=== PATIENT | male | born 1945 | race Caucasian/White ===

== ENCOUNTER → 2019-12-28 13:26 | Outpatient (BNVA) | payer MEDICARE, MEDICAID, SELFPAY | PROVIDERS: PCP Internal Medicine; Referring Provider Internal Medicine; Visit Provider Hospitalist | DX: G47.33 Obstructive sleep apnea (adult) (pediatric) (principal); G20 Parkinson's disease; Z99.89 Dependence on other enabling machines and devices | CPT/HCPCS: 99213 ==

== ENCOUNTER 2020-04-19 13:59 | Outpatient (REF) | payer MEDICARE, MEDICAID, SELFPAY ==
--- NOTE | 2020-04-20 16:30 | MHC.AU.P13 ---
Adult Audiological Evaluation Date of Visit: 04/19/20 Reason for Appointment: Audiological evaluation to monitor the status of Mr. Candelaria's hearing loss. He reports that his hearing seems to be gradually decreasing. He denies any significant changes to his medical history. Previous Hearing Test Results: [facility] [place], 04/20/2019- Mild sloping to profound sensorineural hearing loss bilaterally. Medical History: Medical History: Diabetes, High Blood Pressure Medical History: high cholesterol, Parkinson's, depression Hearing Instrument History- Right Ear: Block Mason: Oticon Model: Opn 3 PP BTE (105) Serial Number: [id number] Battery Size: 13 Repair Warranty: 05/08/2020 Loss and Damage Warranty: January 2019 [facility] [place] Date of Fittin12/25/2016 (purchase date per [employer]) Hearing Instrument History- Left Ear: Block Mason: Oticon Model: Opn 3 PP BTE (105) Serial Number: [id number] Battery Size: 13 Warranty: 05/08/2020 Loss and Damage Warranty: January 2019 Dispensed By: [employer] [place] Date of Fittin12/25/2016 (purchase date per [employer]) Otoscopy: Right Ear: Unremarkable Left Ear: Unremarkable Tympanometry: Right Ear: Not performed at today's visit Left Ear: Not performed at today's visit Hearing Evaluation: Transducer(s) Used: Insert Earphones, Bone Conduction Method: Conventional Audiometry Stimuli Used: Pure Tones Right Ear: Description of Hearing: Mild sloping to profound sensorineural hearing loss from 250-8000 Hz. Thresholds are 10 dB worse than the left ear at 500-1500, 3000, and 6000 Hz. Left Ear: Description of Hearing: Mild sloping to profound sensorineural hearing loss from 250-8000 Hz. Speech Recognition Threshold (SRT): Method Used: Monitored Live Voice Stimuli Used: Spondee Words Right Ear: 50 dBHL Left Ear: 45 dBHL Word Discrimination: Method: Recorded Lists Word Lists Used: NU-6 Right Ear: 72% at 85 dBHL Left Ear: 88% at 85 dBHL Comparison: Compared to the most recent evaluation: Hearing is stable. Recommendations: Audiological re-evaluation in one year. Hearing aid maintenance performed today. See Hearing Aid Follow-Up note for more information. Hearing aid maintenance recommended in 6 months. Diagnosis: Primary Diagnosis: H90.3 Bilateral Sensorineural Hearing Loss Services Performed: Comprehensive Audiological Evaluation (CPT 72997) Signature: Provider: Jeff Garduno, CCC-A
== END 2020-04-19 14:00 | disposition home or self-care (01) ==
LOC: HO.SH 13:59
PROVIDERS: Visit Provider Internal Medicine
DX: Z46.1 Encounter for fitting and adjustment of hearing aid (principal); H90.3 Sensorineural hearing loss, bilateral
CPT/HCPCS: 92557; 92593; 99499

== ENCOUNTER 2020-09-13 13:03 | Outpatient (REF) | payer MEDICARE, MEDICAID, SELFPAY | END 2020-09-13 13:04 | disposition home or self-care (01) | LOC: HO.HAP 13:03 | PROVIDERS: Visit Provider Internal Medicine | DX: Z46.1 Encounter for fitting and adjustment of hearing aid (principal); H90.6 Mixed conductive and sensorineural hearing loss, bilateral; H90.3 Sensorineural hearing loss, bilateral | CPT/HCPCS: 92593 ==

== ENCOUNTER 2020-10-13 08:16 | Outpatient (REF) | payer MEDICARE, MEDICAID, SELFPAY | END 2020-10-13 08:17 | disposition home or self-care (01) | LOC: HO.HAP 08:16 | PROVIDERS: Visit Provider Internal Medicine | DX: Z46.1 Encounter for fitting and adjustment of hearing aid (principal); H90.3 Sensorineural hearing loss, bilateral | CPT/HCPCS: 92593; V5266 ==

== ENCOUNTER 2020-11-04 12:00 | Outpatient (REF) | payer MEDICARE, MEDICAID, SELFPAY | END 2020-11-04 12:01 | disposition home or self-care (01) | LOC: HO.HAP 12:00 | PROVIDERS: Visit Provider Internal Medicine | DX: Z46.1 Encounter for fitting and adjustment of hearing aid (principal); H90.3 Sensorineural hearing loss, bilateral | CPT/HCPCS: V5014 ==

== ENCOUNTER → 2020-11-22 13:01 | Outpatient (BNVA) | payer MEDICARE, MEDICAID, SELFPAY | PROVIDERS: PCP Internal Medicine; Visit Provider Urology | DX: N40.1 Benign prostatic hyperplasia with lower urinary tract symptoms (principal); N28.1 Cyst of kidney, acquired | CPT/HCPCS: 51798; 99212 ==

== ENCOUNTER → 2020-11-25 08:55 | Outpatient (BNVA) | payer MEDICARE, MEDICAID, SELFPAY | PROVIDERS: PCP Internal Medicine; Visit Provider Hospitalist | DX: G47.33 Obstructive sleep apnea (adult) (pediatric) (principal); G47.00 Insomnia, unspecified; Z99.89 Dependence on other enabling machines and devices | CPT/HCPCS: 99212 ==

== ENCOUNTER 2020-12-01 08:54 | Outpatient (REF) | payer MEDICARE, MEDICAID, SELFPAY ==
[2020-12-01 10:22] LABS: Blood Urea Nitrogen 26 mg/dL (9-16); Estimated Glomerular Filt Rate > 60
== END 2020-12-01 08:55 | disposition home or self-care (01) ==
LOC: HO.LAB 08:54
PROVIDERS: PCP Internal Medicine; Visit Provider Urology
DX: N28.1 Cyst of kidney, acquired (principal); R39.15 Urgency of urination
CPT/HCPCS: 36415; 82565; 84520

== ENCOUNTER 2020-12-08 10:10 | Outpatient (REF) | payer MEDICARE, MEDICAID, SELFPAY ==
--- NOTE | ~2020-12-08 | CT_ITS ---
EXAMINATION: CT ABDOMEN WITHOUT AND WITH CONTRAST CLINICAL INFORMATION: Evaluate complex cyst of left kidney. COMPARISON: Prior renal ultrasound exams, including 04/23/2019. TECHNIQUE: Contiguous axial thin section helical images of the abdomen were performed before and after the administration of 85 mL of Omnipaque [address] examination was performed using dose optimization techniques as appropriate, variously including the following: *Automated exposure control *Adjustment of mA and/or kV according to patient size (this includes techniques or standardized protocols for targeted exams where dose is matched to indication/reason for exam; i.e. extremities or head) *Use of iterative reconstruction technique DLP: 837 mGy-cm FINDINGS: LUNG BASES: There is coronary artery atherosclerotic calcification. No pulmonary consolidation or pleural effusion at either lung base. LIVER: Mild hepatomegaly. Liver has parenchymal attenuation of approximately 35-48 HU on noncontrast images, consistent with mild steatosis. A few calcified granulomas are observed within the liver. GALLBLADDER AND BILIARY TREE: Gallbladder is without radiopaque stones, wall thickening or pericholecystic fluid. No bile duct dilatation. PANCREAS: Normal. No edema, pancreatic ductal dilatation or mass. SPLEEN: Mildly enlarged spleen measures up to 13.8 cm maximum dimension. ADRENAL GLANDS: Normal. KIDNEYS AND URETERS: Kidneys are normal in size. 0.8 x 0.3 x 0.4 cm calyceal stone in the right lower pole has a density of 700 Hounsfield units and is located 12.8 cm deep from the skin surface at the posterior axillary line. No hydronephrosis. No perinephric fluid collection. Bosniak category 1 and category 2 renal cysts are observed. The cysts of the right kidney have a simple appearance, largest measuring up to 2.1 cm. The left renal cyst described as complex on 04/23/2019 has a simple appearance on this CT exam. It currently measures up to 2.6 cm and has water attenuation on pre and postcontrast images. No solid, contrast-enhancing soft tissue elements or thick septations. The largest cyst of the left kidney is a simple parapelvic cyst in the mid to lower pole that measures up to 5.6 cm maximum dimension. A cyst of the posterior left lower pole is a Bosniak category 2 cyst. It has minimal calcification of its posterior wall, and there is a 1.2 cm component that has the appearance of a proteinaceous cyst, density of 28 Hounsfield units on pre- and postcontrast images. BOWEL AND PERITONEUM: No dilated bowel loops. No ascites or mesenteric fat stranding. ABDOMINAL WALL: Unremarkable. VASCULATURE: Atherosclerosis of the abdominal aorta without aneurysm. Inferior vena cava and renal veins are normal. LYMPH NODES: No pathologic sized lymph nodes. SKELETAL: Degenerative disc disease of T12-L1 as manifest by loss of disc height, vacuum disc phenomenon, endplate sclerosis and osteophytosis. No suspicious lesions in the degenerated spine. A few old healed right rib fractures are noted. CT/CT abdomen wo/w con IMPRESSION: * Mild hepatic steatosis and hepatosplenomegaly. * The cyst described as complex on 04/23/2019 is a simple, Bosniak category [address] imaging examination. There are no suspicious renal lesions. No renal imaging follow-up is recommended. * Nonobstructing stone in the lower pole of the right kidney.
[2020-12-08] MEDS: iohexoL 350 MG/ML 100 ML INFUS..BTL IV (11:36)
== END 2020-12-08 10:11 | disposition home or self-care (01) ==
LOC: HO.CT 10:10
PROVIDERS: Visit Provider Urology
DX: N28.1 Cyst of kidney, acquired (principal)
CPT/HCPCS: 74170; Q9967

== ENCOUNTER → 2021-01-10 11:22 | Outpatient (BNVA) | payer MEDICARE, MEDICAID, SELFPAY | PROVIDERS: PCP Internal Medicine; Visit Provider Urology | DX: N40.1 Benign prostatic hyperplasia with lower urinary tract symptoms (principal); N28.1 Cyst of kidney, acquired; N20.0 Calculus of kidney | CPT/HCPCS: 99212 ==

== ENCOUNTER 2021-07-03 14:04 | Outpatient (REF) | payer MEDICARE, MEDICAID, SELFPAY ==
--- NOTE | 2021-07-03 16:07 | MHC.AU.AHA ---
Adult Audiological Evaluation Date of Visit: 07/03/21 Reason for Appointment: Audiological re-evaluation to monitor the status of Juve's hearing. He has a known bilateral, sensorineural hearing loss and uses hearing aids binaurally. He notes that he hasn't been hearing as well with the hearing aids lately and feels his hearing is getting worse. He notes that he has to turn the TV up louder and has been asking for more repetition. He denies any significant changes to his medical history. Previous Hearing Test Results: [facility] [place], 04/19/2020- Mild sloping to profound sensorineural hearing loss bilaterally. Medical History: Medical History: Diabetes, High Blood Pressure, high cholesterol, Parkinson's, depression Medication List: Not provided Hearing Instrument History- Right Ear: Stave Cutting Supervisor: Oticon Model: Opn 3 PP BTE Serial Number: [id number] Battery Size: 13 Repair Warranty: 11/04/2021 Loss and Damage Warranty: Dispensed By: [facility] Date of Fittin Hearing Instrument History- Left Ear: Stave Cutting Supervisor: Oticon Model: Opn 3 PP BTE Serial Number: [id number] Battery Size: 13 Warranty: 11/04/2021 Loss and Damage Warranty: Dispensed By: [facility] Date of Fittin Otoscopy: Right Ear: Unremarkable Left Ear: Unremarkable Tympanometry: Tympanometry performed due to: To assess integrity of the middle ear system Right Ear: Normal Middle Ear System (Type A) Left Ear: Reduced Middle Ear Compliance (Type As) Hearing Evaluation: Transducer(s) Used: Insert Earphones, Bone Conduction Method: Conventional Audiometry Stimuli Used: Pure Tones Right Ear: Description of Hearing: Moderate sloping to profound sensorineural hearing loss from 250-8000 Hz. Left Ear: Description of Hearing: Mild sloping to profound sensorineural hearing loss from 250-8000 Hz. Speech Recognition Threshold (SRT): Method Used: Monitored Live Voice Stimuli Used: Spondee Words Right Ear: 50 dBHL Left Ear: 50 dBHL Word Discrimination: Method: Recorded Lists Word Lists Used: NU-6 Right Ear: 68% at 90 dBHL Left Ear: 84% at 90 dBHL Comparison: Compared to most recent evaluation: Slight decrease in pure tone thresholds bilaterally. Recommendations: Audiological re-evaluation in one year. Hearing aid maintenance performed today. Hearing aid(s) reprogrammed with updated test results. Hearing aids are amplifying clearly post-cleaning and adjustments. Juve is due for updated amplification in January 2022. Diagnosis: Primary Diagnosis: H90.3 Bilateral Sensorineural Hearing Loss Services Performed: Comprehensive Audiological Evaluation (CPT 97464) Tympanometry (CPT 58516) Signature: Provider: Jeff Garduno, CCC-A
== END 2021-07-03 14:05 | disposition home or self-care (01) ==
LOC: HO.SH 14:04
PROVIDERS: Visit Provider Internal Medicine
DX: Z01.118 Encounter for examination of ears and hearing with other abnormal findings (principal); Z46.1 Encounter for fitting and adjustment of hearing aid; H90.3 Sensorineural hearing loss, bilateral
CPT/HCPCS: 92557; 92567; 92593; V5266

== ENCOUNTER → 2021-07-20 13:19 | Outpatient (BNVA) | payer MEDICARE, MEDICAID, SELFPAY | PROVIDERS: PCP Internal Medicine; Visit Provider Hospitalist | DX: G47.33 Obstructive sleep apnea (adult) (pediatric) (principal); G47.00 Insomnia, unspecified; Z99.89 Dependence on other enabling machines and devices | CPT/HCPCS: 99212 ==

== ENCOUNTER → 2021-07-21 10:43 | Outpatient (BNVA) | payer MEDICARE, MEDICAID, SELFPAY | PROVIDERS: PCP Internal Medicine; Visit Provider Urology | DX: N20.0 Calculus of kidney (principal); N28.1 Cyst of kidney, acquired; N40.0 Benign prostatic hyperplasia without lower urinary tract symptoms | CPT/HCPCS: 99212 ==

== ENCOUNTER 2021-08-22 12:22 | Outpatient (REF) | payer MEDICARE, MEDICAID, SELFPAY ==
--- NOTE | 2021-08-22 13:08 | MHC.AU.HFU ---
Hearing Instrument Follow-Up- Binaural Date of Visit: 08/22/21 Right Ear: Flex O Writer Operator: Oticon Model: Opn 3 PP BTE Serial Number: [id number] Repair Warranty: 11/04/2021 Loss and Damage Warranty: Battery Size: 13 Color: Silver Tubing: Changed to Dri-Tube 08/22/2021 Type of Mold: Acrylic Canal lock mold Dispensed By: [facility] Date of Fittin Left Ear: Flex O Writer Operator: Oticon Model: Opn 3 PP BTE Serial Number: [id number] Repair Warranty: 11/04/2021 Loss and Damage Warranty: Battery Size: 13 Color: Silver Tubing: Changed to Dri-Tube 08/22/2021 Type of Mold: Acrylic Canal lock mold Dispensed By: [facility] Date of Fittin Follow-Up Summary: Patient reports short battery life, in particular for the left hearing aid with the battery only lasting one day. Visual inspection showed some moisture in both tubes and debris in the microphones. Also checked the batteries with both having adhesive residue from the tab, left greater than right. Cleaned aids, microphones, contacts, changed to dri-tube for both aids. Explained the 3 potential factors I found which could reduce battery life. Otoscopy showed only a small amount of non-occluding cerumen in both canals. Recommendations: If problem continues, will need to send aid(s) out for repair as patient is not eligible for new aids until 01/2022. Diagnosis Code(s):Primary Diagnosis: H90.3 Bilateral Sensorineural Hearing Loss Services Performed:KATE Non-Quantity Charges: HACHECKB (MH>1 yr or new to us) Face to face appointment Signature: Provider: eJff Ojeda, CCC-A
== END 2021-08-22 12:23 | disposition home or self-care (01) ==
LOC: HO.HAP 12:22
PROVIDERS: Visit Provider Internal Medicine
DX: Z46.1 Encounter for fitting and adjustment of hearing aid (principal); H90.3 Sensorineural hearing loss, bilateral
CPT/HCPCS: 92593

== ENCOUNTER 2021-08-24 14:24 | Outpatient (REF) | payer MEDICARE, MEDICAID, SELFPAY | END 2021-08-24 14:25 | disposition home or self-care (01) | LOC: HO.HAP 14:24 | PROVIDERS: Visit Provider Internal Medicine | DX: Z46.1 Encounter for fitting and adjustment of hearing aid (principal); H90.3 Sensorineural hearing loss, bilateral | CPT/HCPCS: 92592 ==

== ENCOUNTER 2021-10-23 11:03 | Outpatient (REF) | payer MEDICARE, MEDICAID, SELFPAY | END 2021-10-23 11:04 | disposition home or self-care (01) | LOC: HO.HAP 11:03 | PROVIDERS: Visit Provider Internal Medicine | DX: Z46.1 Encounter for fitting and adjustment of hearing aid (principal); H90.3 Sensorineural hearing loss, bilateral | CPT/HCPCS: V5266 ==

== ENCOUNTER 2021-11-15 09:51 | Outpatient (REF) | payer MEDICARE, MEDICAID, SELFPAY ==
--- NOTE | 2021-11-15 15:27 | MHC.AU.HFU ---
Hearing Instrument Follow-Up- Binaural Date of Visit: 11/15/21 Right Ear: Commercial Hvac Technician: Oticon Model: Opn 3 PP BTE Serial Number: [id number] Repair Warranty: 11/04/2021 Battery Size: 13 Tubing: Changed to Dri-Tube 08/22/2021 Dispensed By: [facility] Date of Fittin Left Ear: Commercial Hvac Technician: Oticon Model: Opn 3 PP BTE Serial Number: [id number] Repair Warranty: 11/04/2021 Battery Size: 13 Tubing: Changed to Dri-Tube 08/22/2021 Dispensed By: [facility] Date of Fittin Follow-Up Summary: Patient reports his batteries are still only lasting 1-3 days. He reports they have been sent out for repair for this issue in the past and it has not improved. His has also noticed that he doesn't seem to be hearing well from them and is placing the television at uncomfortably loud volumes. At last visit on 08/22/21, adhesive residue was discovered on the batteries. Today, adhesive residue was also discovered on the batteries. In addition, the adhesive residue was also found on the simmons of the battery compartment. The residue was cleaned out of the battery compartment. Hearing aids were placed in the electric dehumidifier for several minutes. Debris removed from microphones. Hearing aids are amplifying clearly after maintenance. Discussed findings about the adhesive. Patient reports he has been wiping the batteries with a paper towel. It has not been removing all of the adhesive. Suggested using an alcohol pad or trying a different brand of batteries. Patient is eligible for new hearing aids in January 2022 and is interested in rechargeables to avoid this issue in the future. In Genie 2, overall gain was raised by 2 steps. High frequency gain was lowered than expected. Raised high frequency gain an additional 4 steps. Patient was pleased with the changes, reporting it was comfortable and that he could hear me better. Recommendations: Patient will request an updated order from his PCP for an audio eval, as his last one was in June 2021 and he will need a test within the last 6 months for his insurance to cover new hearing aids in January. We will aim for late December/early January for an audiological re-evaluation. Diagnosis Code(s): Primary Diagnosis: H90.3 Bilateral Sensorineural Hearing Loss Signature: Provider: Jeff Campo, CCC-A
== END 2021-11-15 09:52 | disposition home or self-care (01) ==
LOC: HO.HAP 09:51
PROVIDERS: Visit Provider Internal Medicine
DX: Z46.1 Encounter for fitting and adjustment of hearing aid (principal); H90.3 Sensorineural hearing loss, bilateral
CPT/HCPCS: 92593

== ENCOUNTER 2021-11-20 13:33 | Outpatient (REF) | payer MEDICARE, MEDICAID, SELFPAY | END 2021-11-20 13:34 | disposition home or self-care (01) | LOC: HO.HAP 13:33 | PROVIDERS: Visit Provider Internal Medicine | DX: Z13.89 Encounter for screening for other disorder (principal) ==

== ENCOUNTER 2021-11-22 14:15 | Outpatient (REF) | payer MEDICARE, MEDICAID, SELFPAY | END 2021-11-22 14:16 | disposition home or self-care (01) | LOC: HO.SH 14:15 | PROVIDERS: Visit Provider Internal Medicine | DX: Z13.89 Encounter for screening for other disorder (principal) ==

== ENCOUNTER 2022-01-15 10:21 | Outpatient (REF) | payer MEDICARE, MEDICAID, SELFPAY ==
--- NOTE | ~2022-01-15 | US_ITS ---
EXAMINATION: US RETROPERITONEAL LIMITED (RENAL ONLY) CLINICAL INFORMATION: Cyst of kidney, acquired. COMPARISON: CT abdomen without and with contrast 12/08/2020 TECHNIQUE: Real-time imaging of the kidneys. FINDINGS: RIGHT KIDNEY: 15.0 x 7.1 x 7.2 cm (SAG x AP x TRV). The kidney is normal in size, contour, and echogenicity. Renal cortical thickness is normal. No hydronephrosis. 1 cm echogenic shadowing lower pole calculus. Numerous right renal cysts are seen the largest measuring 2.7 cm in the right mid kidney. A few of the cysts have a single thin septation. LEFT KIDNEY: 16.7 x 7.2 x 8.4 cm (SAG x AP x TRV). The kidney is normal in size, contour, and echogenicity. Renal cortical thickness is normal. No renal calculi or hydronephrosis. Numerous left renal cysts are present. The largest measures 6.2 x 3.7 x 4.4 cm. Several have septations. US/US renal BI IMPRESSION: Multiple bilateral renal cysts are present. Several cysts bilaterally have thin septations. None have suspicious or concerning features such as thick septations or mural nodules. No imaging follow-up is recommended based on the renal protocol CT scan 12/08/2020. If follow-up is warranted clinically, ultrasound is a limited modality for following these findings. Individual cysts cannot be reliably compared across studies by ultrasound. Moreover, ultrasound has limited utility in identifying soft tissue components. If further follow-up is clinically warranted recommend renal protocol CT or preferably MRI.
== END 2022-01-15 10:22 | disposition home or self-care (01) ==
LOC: HO.US 10:21
PROVIDERS: Visit Provider Urology
DX: N28.1 Cyst of kidney, acquired (principal)
CPT/HCPCS: 76775

== ENCOUNTER 2022-01-19 15:30 | Outpatient (REF) | payer MEDICARE, MEDICAID, SELFPAY ==
--- NOTE | 2022-01-19 16:45 | MHC.AU.MED ---
Medical Clearance for Hearing Instrumentation Date: 01/19/22 Patient Name: Juve To III Date of : 1945 Primary Care Provider: Felicity Ga MD We have seen your patient on 01/19/22 and have determined that they are a candidate for amplification (See accompanying report). Specifically, they would benefit from: Hearing aid use in both ears There is a statute that addresses Medical Evaluation Requirements prior to fitting a patient with a hearing aid. According to [place] statute 265 CMR:6.03(1), (a) General. Except as provided in 265 CMR 6.03(1)(b), a photographic spotter shall not sell a hearing aid unless the prospective user has presented to the photographic spotter a written statement signed by a licensed physician that states that the patient's hearing loss has been medically evaluated and the patient may be considered a candidate for a hearing aid. The medical evaluation must have taken place within the preceding six months. Please note: Due to the [place] Statute referenced above, we cannot accept a signature other than that of a licensed physician. CABINET WORKER and PA signatures cannot be accepted. I am in agreement with the above recommendation. There is no medical contraindication for hearing instrumentation. Physician Signature Date Physician Name (Printed)
--- NOTE | 2022-01-22 11:54 | MHC.AU.HFU ---
Hearing Instrument Follow-Up- Binaural Date of Visit: 01/19/22 Right Ear: Oticon OPN 3 PP BTE SN: [id number] Color: Silver Repair Warranty: 11/04/2021 Loss and Damage Warranty: Battery Size: 13 Type of Mold: Acrylic Canal lock mold Dispensed By: [facility] Date of Fittin Left Ear: Oticon OPN 3 PP BTE SN: [id number] Color: Silver Repair Warranty: 11/04/2021 Loss and Damage Warranty: Battery Size: 13 Type of Mold: Acrylic Canal lock mold Dispensed By: [facility] Date of Fittin Follow-Up Summary: Juve returned for routine hearing aid maintenance. His hearing aids and ear molds were cleaned and microphones were vacuumed. The tubing was replaced. A listening check demonstrated that the hearing aids are in good working order. Recommendations: Hearing instrument maintenance in 6 months, or sooner if needed. Please contact our clinic with any questions or concerns. Diagnosis Code(s): Primary Diagnosis: H90.3 Bilateral Sensorineural Hearing Loss Signature: Provider: Christiano Levy, [facility]
--- NOTE | 2022-01-22 12:20 | MHC.AU.HAS ---
Hearing Aid Evaluation Date of Visit: 01/19/22 Historical Information: Description of Hearing: Mild sloping to profound sensorineural hearing loss, bilaterally Current personal amplification information: Oticon OPN 3 PP BTE fit in January 2017 Hearing Aid Prescription: Based on the individual?s shared listening needs, communication environments, dexterity, desire for connectivity, and personal preferences, the following prescription for amplification has been made: Right ear: Business Ethics Professor: Phonak Model: Susan P70-TX Battery Size: Rechargeable Color: Velvet Black Type of Mold: Microsonic M35 canal shell mold Left ear: Left ear prescription to be same as Right Hearing Aid above: Business Ethics Professor: Phonak Model: Susan P70-TX Battery Size: Rechargeable Color: Velvet Black Type of Mold: Microsonic M35 canal shell mold Accessories/Assistive Technology Recommended: Publication Editor with power supply and wall adapter Plan of Care: Patient wishes to purchase hearing aids as prescribed Action Taken/Action Needed: Earmold Impressions Taken Medical Clearance to be requested from PCP/ENT Hearing Instrument Fitting to be scheduled when materials arrive Primary Diagnosis: H90.3 Bilateral Sensorineural Hearing Loss Signature: Provider: Christiano Levy, CCC-A
== END 2022-01-19 15:31 | disposition home or self-care (01) ==
LOC: HO.HAP 15:30
PROVIDERS: Visit Provider Internal Medicine
DX: Z46.1 Encounter for fitting and adjustment of hearing aid (principal); H90.3 Sensorineural hearing loss, bilateral
CPT/HCPCS: 92552; 92556; 92591; 92593

== ENCOUNTER → 2022-01-25 10:46 | Outpatient (BNVA) | payer MEDICARE, MEDICAID, SELFPAY | PROVIDERS: PCP Internal Medicine; Visit Provider Urology | DX: N40.1 Benign prostatic hyperplasia with lower urinary tract symptoms (principal); R35.1 Nocturia; R39.12 Poor urinary stream; N20.0 Calculus of kidney; N28.1 Cyst of kidney, acquired | CPT/HCPCS: 99212 ==

== ENCOUNTER → 2022-03-28 10:49 | Outpatient (BNVA) | payer MEDICARE, MEDICAID, SELFPAY | PROVIDERS: PCP Internal Medicine; Visit Provider Urology | DX: N20.0 Calculus of kidney (principal); N28.1 Cyst of kidney, acquired; N40.0 Benign prostatic hyperplasia without lower urinary tract symptoms; G20 Parkinson's disease; E11.9 Type 2 diabetes mellitus without complications | CPT/HCPCS: 51798; 99212 ==

== ENCOUNTER 2022-03-28 11:51 | Outpatient (REF) | payer MEDICARE, MEDICAID, SELFPAY | END 2022-03-28 11:52 | disposition home or self-care (01) | LOC: HO.HAP 11:51 | PROVIDERS: Visit Provider Internal Medicine | DX: Z46.1 Encounter for fitting and adjustment of hearing aid (principal); H90.3 Sensorineural hearing loss, bilateral | CPT/HCPCS: V5266 ==

== ENCOUNTER 2022-04-25 14:30 | Outpatient (REF) | payer MEDICARE, MEDICAID, SELFPAY ==
--- NOTE | 2022-04-25 16:20 | MHC.AU.HA2 ---
Hearing Instrument Fitting- Adult- Binaural Date of Visit: 04/25/22 Hearing Instruments Dispensed: Right Ear: Make, Model, Color, Serial Number: Emery Davis P70-R SN: [id number] Color: Velvet black Security Systems Installer Repair Warranty: 06/25/2025 Security Systems Installer Loss and Damage Warranty: 06/25/2025 [facility] Service Plan: 04/25/2023 Battery Size: Rechargeable Earmold/Dome/CShell/SlimTip: Microsonic M35 canal shell Left Ear: Make, Model, Color, Serial Number: Emery Davis P70-R SN: [id number] Color: Velvet black Security Systems Installer Repair Warranty: 06/25/2025 Security Systems Installer Loss and Damage Warranty: 06/25/2025 [facility] Service Plan: 04/25/2022 Battery Size: Rechargeable Earmold/Dome/CShell/SlimTip: Microsonic M35 canal shell Accessories/Assistive Technology: Phonak Mineral Surveyor Combi BTE incl. US EPS Summary of Fitting: Performed feedback bid manager and real ear measurements. Comfortable at real ear settings. Reviewed care, use, and rechargeability including manually turning on/off and volume control use. Juve is happy to have rechargeable hearing aids so he does not have to worry about batteries anymore. Paired to cell phone. Explained [employer] yessica - Juve will download it at home if he wants to try it. Otherwise, Juve reported good, initial sound quality in terms of both volume and clarity. Recommendations: A hearing instrument follow-up was scheduled. Diagnosis Code(s): Primary Diagnosis: H90.3 Bilateral Sensorineural Hearing Loss Signature: Provider: Christiano Levy, [facility]
== END 2022-04-25 14:31 | disposition home or self-care (01) ==
LOC: HO.HAP 14:30
PROVIDERS: Visit Provider Internal Medicine
DX: Z46.1 Encounter for fitting and adjustment of hearing aid (principal); H90.3 Sensorineural hearing loss, bilateral
CPT/HCPCS: V5011; V5020; V5160; V5261; V5264

== ENCOUNTER 2022-04-30 13:13 | Outpatient (REF) | payer MEDICARE, MEDICAID, SELFPAY ==
--- NOTE | 2022-04-30 16:28 | MHC.AU.HA3 ---
Hearing Instrument Follow-Up- Binaural Date of Visit: 04/30/22 Right Ear: Luis, Model, Color, Serial Number: Emery Davis P70-R SN: [id number] Color: Velvet black Eating Disorder Specialist Repair Warranty: 06/25/2025 Eating Disorder Specialist Loss and Damage Warranty: 06/25/2025 [facility] Service Plan: 04/25/2023 Battery Size: Rechargeable Earmold/Dome/CShell/SlimTip:Microsonic M35 canal shell Dispensed By: [facility] Date of Fittin04/25/2022 Left Ear: Luis, Model, Color, Serial Number: Emery Davis P70-R SN: [id number] Color: Velvet black Eating Disorder Specialist Repair Warranty: 06/25/2025 Eating Disorder Specialist Loss and Damage Warranty: 06/25/2025 [facility] Service Plan: 04/25/2023 Battery Size: Rechargeable Earmold/Dome/CShell/SlimTip: Microsonic M35 canal shell Dispensed By: [facility] Date of Fittin04/25/2022 Follow-Up Summary: Juve reported that the day after his fitting, his hearing aids stopped working. He reportedly placed them in the bat person overnight and the next morning they were . Upon inspection, the hearing aids were and would not charge. After trying multiple configurations of Juve's personal equipment with stock equipment, deduced that the charging cable and wall adapter were not functioning. Provided Juve with a stock cable and wall adapter to use with his bat person in the meantime. Will order a new cable and wall adapter. Recommendations: Juve has a follow up appointment for his new hearing aids scheduled 05/09/22. If equipment arrives before then, Juve will pick it up at that appointment. If it has not arrived in time for next appointment, Juve will pick it up and drop off loaner cable and wall adapter (no appointment necessary) at a later date. Diagnosis Code(s): Primary Diagnosis: H90.3 Bilateral Sensorineural Hearing Loss Signature: Provider: Christiano Levy, [facility]
== END 2022-04-30 13:14 | disposition home or self-care (01) ==
LOC: HO.HAP 13:13
PROVIDERS: Visit Provider Internal Medicine
DX: Z13.89 Encounter for screening for other disorder (principal)

== ENCOUNTER 2022-06-22 10:25 | Outpatient (REF) | payer MEDICARE, MEDICAID, SELFPAY ==
--- NOTE | 2022-06-22 11:54 | MHC.AU.HA3 ---
Hearing Instrument Follow-Up- Binaural Date of Visit: 06/22/22 Right Ear: Luis, Model, Color, Serial Number: Emery Davis P70-R SN: [id number] Color: Velvet black Coffee Host Repair Warranty: 06/25/2025 [employer] Loss and Damage Warranty: 06/25/2025 [facility] Service Plan: 04/25/2023 Battery Size: Rechargeable Earmold/Dome/CShell/SlimTip:Microsonic M35 canal shell Dispensed By: [facility] Date of Fittin04/25/2022 Left Ear: Luis, Model, Color, Serial Number: Emery Davis P70-R SN: [id number] Color: Velvet black Coffee Host Repair Warranty: 06/25/2025 [employer] Loss and Damage Warranty: 06/25/2025 [facility] Service Plan: 04/25/2023 Battery Size: Rechargeable Earmold/Dome/CShell/SlimTip: Microsonic M35 canal shell Dispensed By: [facility] Date of Fittin04/25/2022 Follow-Up Summary: Juve reported that overall the hearing aids have been great. Data logging showed about 9 hours of use per day. No programming adjustments needed at this time. Some feedback noted from the left hearing aid; however, when mold was inserted further, feedback was eliminated. Recommended ensuring molds are fully inserted in both ears. Juve reported that his only concern is the connection to his new cell phone. He could only successfully pair the right hearing aid. Forgot all devices in phone and in yessica. Repaired to cellphone and in yessica successfully. Confirmed by making adjustments via yessica and by streaming music. Gave Juve new charging cord and wall adapter and he returned the loaner equipment. Recommendations: Hearing instrument maintenance in 6 months, or sooner if needed. Please contact our clinic with any questions or concerns. Diagnosis Code(s): Primary Diagnosis: H90.3 Bilateral Sensorineural Hearing Loss Signature: Provider: Christiano Levy, [facility]
== END 2022-06-22 10:26 | disposition home or self-care (01) ==
LOC: HO.HAP 10:25
PROVIDERS: Visit Provider Internal Medicine
DX: Z13.89 Encounter for screening for other disorder (principal)

== ENCOUNTER → 2022-07-30 10:54 | Outpatient (BNVA) | payer MEDICARE, MEDICAID, SELFPAY | PROVIDERS: PCP Internal Medicine; Visit Provider Hospitalist | DX: G47.33 Obstructive sleep apnea (adult) (pediatric) (principal); G47.00 Insomnia, unspecified; G25.81 Restless legs syndrome; Z99.89 Dependence on other enabling machines and devices | CPT/HCPCS: 99212 ==

== ENCOUNTER 2022-10-31 15:16 | Outpatient (AMB) | payer MEDICARE, MEDICAID, SELFPAY ==
--- NOTE | 2022-10-31 15:18 | MHC.OFFVIS ---
Intake Intake Visit Reasons: 6M PVR Intake Note: Pt presents to the office today for a 6 month follow up PVR. Urinalysis done. PVR:0ml Allergies bupropion [From WELLBUTRIN] Allergy (Severe, Verified 10/31/22 15:18) Hallucinations Medication List - Last Reconciled 10/31/22 by Vladimir Doyle MD allopurinol 300 mg PO DAILY amlodipine 10 mg PO DAILY calcium carbonate-vitamin D3 600 mg-10 mcg (400 unit) 2 tabs PO DAILY carbidopa-levodopa 25-100 mg tabs PO cetirizine 10 mg PO DAILY ciprofloxacin-dexamethasone 0.3-0.1 % 4 drps otic (ears) BID diazepam 2 mg PO BEDTIME donepezil 5 mg PO DAILY dulaglutide (Trulicity) mg subcut fluticasone propionate 50 mcg/actuation sprays intranasal furosemide 40 mg PO BID insulin aspart U-100 units subcut insulin degludec 30 units subcut BID lancets As directed lisinopril 40 mg PO DAILY metoprolol succinate ER 12.5 mg PO DAILY nitroglycerin 0 mg sublingual pen needle, diabetic As directed rosuvastatin 40 mg PO DAILY sertraline 50 mg PO DAILY sertraline 100 mg PO DAILY HPI HPI Comments History of Present Illness Details ?Juve is a pleasant male. He is a patient of Dr. Ga. He is seen for the following urologic conditions - lower urinary tract symptoms - complex renal cyst Accompanied by his Did not try doxazosin Recommendation to sit when voiding Discussed diabetic carb restriction PVR 0cc Son has completed radiation for recurrent prostate cancer Recommended that the other son have PSA check and genetics should be performed Lower urinary tract symptoms Primary issue of nocturia x2 Also with weakness of stream Background of Parkinson's disease and diabetes Current therapeutic - doxazosin 4 mg - failed prior use of tamsulosin PSA 12/14 1.0 Continue with use of urinal in order to reduce accidents Renal cyst with nephrolithiasis Prior CT scan in emergency room with stone at [facility] - ultrasound 1 cm right lower pole, small possible neoplasm - 12/13 CT scan 1 cm calyceal renal stone, bilateral simple cyst, no evidence of neoplasm - 01/13 renal ultrasound 1 cm right stone, bilateral cysts up to 5 cm on left side Patient and based on prior discussions have agreed for surveillance [facility] Medical History Benign prostatic hyperplasia with lower urinary tract symptoms Bipolar 1 disorder Chronic rhinitis Diabetes mellitus, type II Dyspnea Insomnia Kidney cysts JOSELITO on CPAP Parkinson disease Renal stones Restless leg syndrome Surgical History History of surgery Family History Father No problems noted. Mother No problems noted. Social History Patient Tobacco Use Status: Former Tobacco user Tobacco use type: Cigarette Years Smoked: 30 years Review of Systems Const Denies chills and Denies fever(s) Card Reports no additional complaints and Denies syncope Resp Denies cough GI Denies abdominal pain and Denies heartburn Reports as per HPI and Denies change in libido Neuro Denies syncope Psych Denies change in libido Endo Denies change in libido Physical Exam Const General: cooperative, healthy appearing, comfortable and no acute distress Orientation/consciousness: patient oriented x3 HEENT Face and sinus: Yes normal facial exam Mouth: moist mucous membranes Neck Neck: Yes normal visual inspection, Yes full ROM and Yes trachea midline Chest Chest palpation & inspection: normal inspection of the chest Resp Effort & Inspection: normal respiratory effort, able to speak in complete sentences and no respiratory distress GI Inspection: Yes normal to inspection Back/Spine/Pelvis Cervical Spine: normal cervical lordosis Thoracic/Lumbar Spine: thoracic and lumbar spine normal to inspection Skin General skin exam: no rashes or lesions noted Neuro General: patient oriented x3, gait normal, tone normal and moves all extremities Extrem General: Yes normal to inspection and Yes capillary refill normal Office Procedures Post Void Residual Post Residual Void Post Void Residual (PVR): 0 [id number]-Fuhy Void Residual by ultrasound Results AMB Urinalysis, Automated UA Leukoctes 0 Sophie/uL Last Edit by Kayleen Arredondo MA on 10/31/22 15:28 UA Nitrite Negative Last Edit by Kayleen Arredondo MA on 10/31/22 15:28 UA Urobilinogen 0.2 mg/dL Last Edit by Kayleen Arredondo MA on 10/31/22 15:28 UA Protein 100 mg/dL Last Edit by Kayleen Arredondo MA on 10/31/22 15:28 UA pH 7.0 Last Edit by Kayleen Arredondo MA on 10/31/22 15:28 UA Blood 0 Paul/uL Last Edit by Kayleen Arredondo MA on 10/31/22 15:28 UA Specific [place] 1.010 Last Edit by Kayleen Arredondo MA on 10/31/22 15:28 UA Ketone Negative Last Edit by Kayleen Arredondo MA on 10/31/22 15:28 UA Bilirubin 0 mg/dL Last Edit by Kayleen Arredondo MA on 10/31/22 15:28 UA Glucose 0 mg/dL Last Edit by Kayleen Arredondo MA on 10/31/22 15:28 Results Reviewed Results Reviewed: Laboratory Last Values Urine pH (Auto) 7.0 10/31/22 15:22 Specific [place] (Auto) 1.010 10/31/22 15:22 Urine Protein (Auto) 100 mg/dL 10/31/22 15:22 Glucose (UA)(Auto) 0 mg/dL 10/31/22 15:22 Urine Ketones (Auto) Negative 10/31/22 15:22 Urine Blood (Auto) 0 Paul/uL 10/31/22 15:22 Urine Nitrite (Auto) Negative 10/31/22 15:22 Urine Bilirubin (Auto) 0 mg/dL 10/31/22 15:22 Urine Urobilinogen (Auto) 0.2 mg/dL 10/31/22 15:22 Leukocyte Esterase (Auto) 0 Sophie/uL 10/31/22 15:22 Assessment & Plan Assessment & Plan (1) Renal stones: Code(s): N20.0 - Calculus of kidney (2) Lower urinary tract symptoms due to benign prostatic hyperplasia: Code(s): N40.1 - Benign prostatic hyperplasia with lower urinary tract symptoms Plan Six month PVR Orders: Orders AMB Urinalysis Automated 10/31/22 Z13.9 - Encounter for screening, unspecified AMB Post Void Residual by ultrasound 10/31/22 N40.1 - Benign prostatic hyperplasia with lower urinary tract symptoms Medications: Discontinued doxazosin Discontinued Reason: Patient Refused 4 mg PO BEDTIME 30 days 30 tabs 1RF N13.8 - Other obstructive and reflux uropathy, N40.0 - Benign prostatic hyperplasia without lower urinary tract symptoms, N40.1 - Benign prostatic hyperplasia with lower urinary tract symptoms Patient Instructions: Imaging studies, laboratory and physical exam results were discussed and reviewed in detail. No major barriers to patient understanding were identified. An opportunity to ask questions regarding the treatment plan was provided. All questions were answered. The patient expressed understanding and agreement with the above treatment plan. The patient is aware they should contact our office by phone for worsening of their current condition or the appearance of new urologic symptoms. Compliance is encouraged with any medications and followup testing that is ordered. It is a privilege to participate in the urologic care of your patient. If you have any questions or concerns regarding treatment for the above conditions, or other urologic issues, please do not hesitate to contact me. The office telephone contact is [phone]. This note is constructed using voice recognition software. While every effort has been made to ensure accuracy healthcare project manager errors may have been included. Yours sincerely, Dr Vladimir Doyle MD, [facility] - Urology Providers of Expert, Compassionate Care for the Genitourinary System Coding Level of Care Code Est Pt Level 3 (15321) Diagnoses Renal stones N20.0 Lower urinary tract symptoms due to benign prostatic hyperplasia N40.1 CPT Codes Post Residual Void - PVR CPT Code: 53582-Gclp Void Residual by ultrasound ([id number])
== END 2022-10-31 16:24 | disposition home or self-care (01) ==
PROVIDERS: Visit Provider Urology
DX: N20.0 Calculus of kidney (principal); N40.1 Benign prostatic hyperplasia with lower urinary tract symptoms
CPT/HCPCS: 99213

== ENCOUNTER → 2022-10-31 15:16 | Outpatient (BNVA) | payer MEDICARE, MEDICAID, SELFPAY | PROVIDERS: Visit Provider Urology | DX: N40.1 Benign prostatic hyperplasia with lower urinary tract symptoms (principal); N20.0 Calculus of kidney | CPT/HCPCS: 51798; 99212 ==

== ENCOUNTER 2023-01-02 11:20 | Outpatient (REF) | payer MEDICARE, MEDICAID, SELFPAY | END 2023-01-02 11:21 | disposition home or self-care (01) | LOC: HO.HAP 11:20 | PROVIDERS: Visit Provider Internal Medicine | DX: Z13.89 Encounter for screening for other disorder (principal) ==

== ENCOUNTER 2023-05-10 08:15 | Outpatient (REF) | payer MEDICARE, MEDICAID, SELFPAY ==
--- NOTE | 2023-05-10 09:54 | MHC.AU.HA3 ---
Hearing Instrument Follow-Up- Binaural Date of Visit: 05/10/23 Right Ear: Luis, Model, Color, Serial Number: Emery Davis P70-[id number] SN: [id number] Color: Velvet black Lead Systems Analyst Repair Warranty: 06/25/2025 Lead Systems Analyst Loss and Damage Warranty: 06/25/2025 [facility] Service Plan: 04/25/2023 Battery Size: Rechargeable Sanitarian Inspector/Slim Tube: Earmold/Dome/CShell/SlimTip:Microsonic M35 canal shell Type of Wax Guard: Dispensed By: [facility] Date of Fittin04/25/2022 Left Ear: Luis, Model, Color, Serial Number: Emery Davis P70-[id number] SN: [id number] Color: Velvet black Lead Systems Analyst Repair Warranty: 06/25/2025 Lead Systems Analyst Loss and Damage Warranty: 06/25/2025 [facility] Service Plan: 04/25/2023 Battery Size: Rechargeable Sanitarian Inspector/Slim Tube: Earmold/Dome/CShell/SlimTip: Microsonic M35 canal shell Type of Wax Guard: Dispensed By: [facility] Date of Fittin04/25/2022 Follow-Up Summary: Here with . Reports hearing aids are . Found tubes stiff and clogged with wax. Cleaned hearing aids, earmolds, changed tubes. Listening check positive. Recommendations: Recommendations: Hearing instrument maintenance in 6 months, or sooner if needed. Diagnosis Code(s): Primary Diagnosis: H90.3 Bilateral Sensorineural Hearing Loss Signature: Provider: Christiano Contreras, [facility]
== END 2023-05-10 08:16 | disposition home or self-care (01) ==
LOC: HO.HAP 08:15
PROVIDERS: Visit Provider Internal Medicine
DX: Z46.1 Encounter for fitting and adjustment of hearing aid (principal); H90.3 Sensorineural hearing loss, bilateral
CPT/HCPCS: 92593; 99499

== ENCOUNTER 2023-05-16 11:26 | Outpatient (AMB) | payer MEDICARE, MEDICAID, SELFPAY ==
--- NOTE | 2023-05-16 11:37 | MHC.OFFVIS ---
Intake Intake Visit Reasons: 6M PVR Intake Note: Patient presents today for a follow-up Meds- Tamsulosin Allergies to Antibiotic- No Known Allergies Blood Thinner- Plavix, Aspirin Post Void Residual: 6ml Patient Symptoms: Patient stated after having a surgery, patient started to have urinary issues. He was prescribes Tamsulosin. College Sports Assistant Required: No Accompanied by: Allergies bupropion [From WELLBUTRIN] Allergy (Severe, Verified 05/16/23 11:58) Hallucinations HPI HPI Comments History of Present Illness Details ?Juve is a pleasant male. He is a patient of Dr. Ga. He is seen for the following urologic conditions - lower urinary tract symptoms - complex renal cyst Accompanied by his PVR 0 cc Continue with doxazosin Son has completed radiation for recurrent prostate cancer Recommended that the other son have PSA check and genetics should be performed Lower urinary tract symptoms Primary issue of nocturia x2 Also with weakness of stream Background of Parkinson's disease and diabetes Current therapeutic - doxazosin 4 mg - did not take - failed prior use of tamsulosin PSA 12/14 1.0 Continue with use of urinal in order to reduce accidents Renal cyst with nephrolithiasis Prior CT scan in emergency room with stone at [facility] - ultrasound 1 cm right lower pole, small possible neoplasm - 12/13 CT scan 1 cm calyceal renal stone, bilateral simple cyst, no evidence of neoplasm - 01/13 renal ultrasound 1 cm right stone, bilateral cysts up to 5 cm on left side Patient and based on prior discussions have agreed for surveillance [facility] Medical History Benign prostatic hyperplasia with lower urinary tract symptoms Bipolar 1 disorder Chronic rhinitis Diabetes mellitus, type II Dyspnea Insomnia Kidney cysts JOSELITO on CPAP Parkinson disease Renal stones Restless leg syndrome Surgical History History of surgery Family History Father No problems noted. Mother No problems noted. Social History Patient Tobacco Use Status: Former Tobacco user Tobacco use type: Cigarette Years Smoked: 30 years Review of Systems Const Denies chills and Denies fever(s) Card Reports no additional complaints and Denies syncope Resp Denies cough GI Denies abdominal pain and Denies heartburn Reports as per HPI and Denies change in libido Neuro Denies syncope Psych Denies change in libido Endo Denies change in libido Physical Exam Const General: cooperative, healthy appearing, comfortable and no acute distress Orientation/consciousness: patient oriented x3 HEENT Face and sinus: Yes normal facial exam Mouth: moist mucous membranes Neck Neck: Yes normal visual inspection, Yes full ROM and Yes trachea midline Chest Chest palpation & inspection: normal inspection of the chest Resp Effort & Inspection: normal respiratory effort, able to speak in complete sentences and no respiratory distress GI Inspection: Yes normal to inspection Back/Spine/Pelvis Cervical Spine: normal cervical lordosis Thoracic/Lumbar Spine: thoracic and lumbar spine normal to inspection Skin General skin exam: no rashes or lesions noted Neuro General: patient oriented x3, gait normal, tone normal and moves all extremities Extrem General: Yes normal to inspection and Yes capillary refill normal Office Procedures Post Void Residual Post Residual Void Post Void Residual (PVR): 6 [id number]-[id number] Void Residual by ultrasound Assessment & Plan Assessment & Plan (1) Lower urinary tract symptoms due to benign prostatic hyperplasia: Code(s): N40.1 - Benign prostatic hyperplasia with lower urinary tract symptoms Plan Six-month follow-up PVR Orders: Orders AMB Post Void Residual by ultrasound 05/16/23 N40.1 - Benign prostatic hyperplasia with lower urinary tract symptoms, R33.9 - Retention of urine, unspecified Medications: New tamsulosin 0.4 mg PO BEDTIME 90 caps 1RF 90 days N13.8 - Other obstructive and reflux uropathy, N40.1 - Benign prostatic hyperplasia with lower urinary tract symptoms Patient Instructions: Imaging studies, laboratory and physical exam results were discussed and reviewed in detail. No major barriers to patient understanding were identified. An opportunity to ask questions regarding the treatment plan was provided. All questions were answered. The patient expressed understanding and agreement with the above treatment plan. The patient is aware they should contact our office by phone for worsening of their current condition or the appearance of new urologic symptoms. Compliance is encouraged with any medications and followup testing that is ordered. It is a privilege to participate in the urologic care of your patient. If you have any questions or concerns regarding treatment for the above conditions, or other urologic issues, please do not hesitate to contact me. The office telephone contact is [phone]. This note is constructed using voice recognition software. While every effort has been made to ensure accuracy litigation paralegal errors may have been included. Yours sincerely, Dr Vladimir Doyle MD, [facility] - Urology Providers of Expert, Compassionate Care for the Genitourinary System Coding Level of Care Code Est Pt Level 3 (91701) Diagnoses Lower urinary tract symptoms due to benign prostatic hyperplasia N40.1 CPT Codes Post Residual Void - PVR CPT Code: 03680-Oiam Void Residual by ultrasound ([id number])
== END 2023-05-16 12:19 | disposition home or self-care (01) ==
PROVIDERS: PCP Internal Medicine; Visit Provider Urology
DX: N40.1 Benign prostatic hyperplasia with lower urinary tract symptoms (principal)
CPT/HCPCS: 99213

== ENCOUNTER → 2023-05-16 11:26 | Outpatient (BNVA) | payer MEDICARE, MEDICAID, SELFPAY | PROVIDERS: PCP Internal Medicine; Visit Provider Urology | DX: N40.1 Benign prostatic hyperplasia with lower urinary tract symptoms (principal) | CPT/HCPCS: 51798; 99212 ==

== ENCOUNTER 2023-05-16 15:49 | Outpatient (REF) | payer MEDICARE, MEDICAID, SELFPAY ==
--- NOTE | 2023-05-16 16:14 | MHC.AU.HA3 ---
Hearing Instrument Follow-Up- Binaural Date of Visit: 05/16/23 Right Ear: Luis, Model, Color, Serial Number: Emery Davis P70-R SN: [id number] Color: Velvet black Security Systems Technician Repair Warranty: 06/25/2025 Security Systems Technician Loss and Damage Warranty: 06/25/2025 [facility] Service Plan: 04/25/2023 Battery Size: Rechargeable Sheet Metal Shop Supervisor/Slim Tube: Earmold/Dome/CShell/SlimTip:Microsonic M35 canal shell Type of Wax Guard: Dispensed By: [facility] Date of Fittin04/25/2022 Left Ear: Luis, Model, Color, Serial Number: Emery Davis P70-R SN: [id number] Color: Velvet black Security Systems Technician Repair Warranty: 06/25/2025 Security Systems Technician Loss and Damage Warranty: 06/25/2025 [facility] Service Plan: 04/25/2023 Battery Size: Rechargeable Sheet Metal Shop Supervisor/Slim Tube: Earmold/Dome/CShell/SlimTip: Microsonic M35 canal shell Type of Wax Guard: Dispensed By: [facility] Date of Fittin04/25/2022 Follow-Up Summary: Reports feedback, complaining in the car. Checked aids, recently cleaned and retubed. All looks good. Otoscopy clear Au. Ran feedback manager long term care. Some high freq. gain cut away left. Activated frequency lowering. Improvement noted. Recommendations: Recommendations: Hearing instrument maintenance in 6 months, or sooner if needed. Patient will call if problems persist. Diagnosis Code(s): Primary Diagnosis: H90.3 Bilateral Sensorineural Hearing Loss Signature: Provider: Christiano Contreras, [facility]
== END 2023-05-16 15:50 | disposition home or self-care (01) ==
LOC: HO.HAP 15:49
PROVIDERS: Visit Provider Internal Medicine
DX: Z46.1 Encounter for fitting and adjustment of hearing aid (principal); H90.3 Sensorineural hearing loss, bilateral; N40.1 Benign prostatic hyperplasia with lower urinary tract symptoms; R33.9 Retention of urine, unspecified
CPT/HCPCS: 92593

== ENCOUNTER 2023-08-02 10:54 | Outpatient (AMB) | payer MEDICARE, MEDICAID, SELFPAY ==
--- NOTE | 2023-08-02 10:57 | A.OFFVIS_ITS ---
Vital Signs 08/02/23 11:00 Height 5 ft 7 in Weight 230 lb BMI 36.0 Pulse 65 Pulse Source Pulse Oximeter Pulse Oximetry (%) 94 Oxygen Delivery Method Room Air Intake Visit Reasons: copd Commercial Airplane Pilot Required: No Allergies bupropion [From WELLBUTRIN] Allergy (Severe, Verified 08/02/23 10:57) Hallucinations HPI Comments Details: the patient is a 78-year-old gentleman known obstructive sleep apnea on CPAP in addition to Parkinson's disease. Overall the patient has been doing well from a respiratory status. He does have an intermittent cough but minimal. He also complains of nasal congestion usually does clears his nose without any difficulty. I encouraged him to make sure that his nose is cleared with saline prior to putting him CPAP. He has been using the CPAP therapy in the therapy has been affecting beneficial. He does uses CPAP for more than 4 hours a night. He is having difficulties, with his current mask, F20. he did go to his [place] and he was set up with the Iris gel mask. hopefully this mask works better for him. Otherwise patient is without any other complaints. 07/20/2021 the patient is here for a pulmonary follow-up visit. Overall he is d oing well. He does continue to use his BiPAP therapy. He did get a new replacement machine. appears to be working very well. His current settings are 17/12. I did download the machine and his AHI is close to 0.1. However his lung volumes seems to be high between 600-900 mL. Therefore although he is doing well will be reasonable to try to decrease some of the driving pressure to try to minimize the over distension of the lungs. Therefore I decreased to 16/12. He will continue that and monitor his AHI. Will be able to making further adjustments online with his new more sophisticated BiPAP. He continues to have a hard time sleeping. He tried multiple agents already. He does not respond well to medications. We did talk about behavioral sleep therapy. he will try adding some of those techniques to his sleep. We also did talk about herbal sleep therapies. he will also consider those. Otherwise patient is without any other complaints. 07/30/2022 the patient is here for a pulmonary follow-up visit. The patient overall is doing about the same. His Parkinson's disease about the same. He continues use the BiPAP every night at the current settings. His AHI still below 1. Although he does get a lot of air leakage even though he has a fullface mask. He has found that the medium size fullface mask works better for him. Although sometimes when he opens up his mouth it does come out and causes the air leakage. However, he does feel that he does better with a medium-size mask. I did recommend he can try chinstrap that he can use along with the fullface mask to see if this provides better seal. Will submit a prescription to his [employer] come out life support. In addition to this he still struggling with sleep. His using Kenzie and would at nighttime. He will try adding melatonin to the regimen. In addition to that which check his iron stores and ferritin to make sure that he is not are depleted potentially resulting in rests like at nighttime. 08/02/2023 the patient is here for pulmonary follow-up visit. The patient since we last spoke did have a cardiac event requiring quadruple bypass surgery at [facility]. The patient afterwards developed a pneumonia. Had a CT scan of the chest done March 2023 which I personally reviewed demonstrating airspace disease in addition to the chronic pleural changes secondary to pleural thickening and pleural effusion after his surgery. He did recover he then went to rehab and now has doing better. He also has some delirium on the hospital. While in the hospital he could not tolerate the BiPAP due to his altered mental status. But now he is back to using it. He can not find a good fitting mask. He is tried multiple different types. Currently he is using the F20 mask. He does get supplies from by supplies. I do believe that enough 20 AirTouch foam mask may be a good option for him to bed get a better seal around the face. We did give him a script for him to take and also will send a script to his [employer] company. The patient also has been having issues with shortness a breath. He is noticed increased lower extremity edema. Does take Lasix twice a day. He also had a pulse ox of 94% which is a little low with normal for him. His respiratory exam is okay just diminished on the left side where he has this small effusion. He had a chest x-ray May still demonstrating persistent effusion although very small. I did recommend he take additional Lasix for the weekend least 1 more tablet in the morning and then if any persistent issues she should call his mechanical engineering director. [facility] Medical History Benign prostatic hyperplasia with lower urinary tract symptoms Bipolar 1 disorder Chronic rhinitis Diabetes mellitus, type II Dyspnea Insomnia Kidney cysts JOSELITO on CPAP Parkinson disease Renal stones Restless leg syndrome Surgical History History of surgery Family History Father No problems noted. Mother No problems noted. Social History Patient Tobacco Use Status: Former Tobacco user Tobacco use type: Cigarette Years Smoked: 30 years Review of Systems Const Reports difficulty sleeping and Denies night sweats ENT Denies change in voice, Denies lip swelling, Denies mouth pain, Reports nasal congestion, Reports nasal discharge and Denies tongue swelling Card Denies chest pain and Reports dyspnea on exertion Resp Reports cough and Reports dyspnea on exertion GI Denies abdominal pain Musc Reports abnormal gait Neuro Reports Neuro-related abnormal movements, Reports abnormal gait and Reports tremor(s) Psych Denies no additional complaints Jose Luis/Lymph Denies easy bleeding and Denies lymphadenopathy Aller/Immun Denies lip swelling and Denies tongue swelling Physical Exam Vital Signs: Last Vital Signs Pulse 65 08/02/23 11:00 Pulse Ox 94 08/02/23 11:00 Oxygen Delivery Method Room Air 08/02/23 11:00 BMI result Body Mass Index 36.0 Const General: alert HEENT General nose exam: Abnormal external nose present and Nasal discharge present Eyes Pupils: Equal, round and reactive pupils present Neck Neck: Yes normal visual inspection, Yes full ROM and Yes no lymphadenopathy Chest Chest palpation & inspection: normal inspection of the chest Resp Effort & Inspection: normal respiratory effort Auscultation: diminished lung sounds Cardio Rate: regular rate Rhythm: regular rhythm Heart sounds: S1 normal heart sound present and S2 normal heart sound present GI Palpation (GI): Soft to palpation and nontender Auscultation: normal bowel sounds General: Yes no CVA tenderness Back/Spine/Pelvis Back: no CVA tenderness Skin General skin exam: rashes and/or lesions noted Neuro Cranial nerves: Yes Equal, round and reactive pupils present Assessment & Plan Assessment & Plan (1) JOSELITO on CPAP: Code(s): G47.33 - Obstructive sleep apnea (adult) (pediatric); Z99.89 - Dependence on other enabling machines and devices Category: Medical (2) Insomnia: Code(s): G47.00 - Insomnia, unspecified Category: Medical Qualifiers: Insomnia type: primary Qualified Code(s): F51.01 - Primary insomnia (3) Restless leg syndrome: Code(s): G25.81 - Restless legs syndrome Category: Medical (4) Dyspnea: Code(s): R06.00 - Dyspnea, unspecified Category: Medical Qualifiers: Dyspnea type: dyspnea on exertion Qualified Code(s): R06.09 - Other forms of dyspnea Plan continue BIPAP 16/, medium facemask, requesting airtouch foam F20 med Behavioral sleep therapies increase exercise routine Follow up 1 year Coding Level of Care Code Est Pt Level 4 (32804) Diagnoses JOSELITO on CPAP G47.33; Z99.89 Primary insomnia F51.01 Insomnia type: primary Restless leg syndrome G25.81 Dyspnea on exertion R06.09 Dyspnea type: dyspnea on exertion Time Spent (min) 20
[2023-08-02 11:00] VITALS: PULSE 65; O2SAT 94; BMI 36.0
== END 2023-08-02 11:34 | disposition home or self-care (01) ==
PROVIDERS: PCP Internal Medicine; Visit Provider Hospitalist
DX: G47.33 Obstructive sleep apnea (adult) (pediatric) (principal); Z99.89 Dependence on other enabling machines and devices; F51.01 Primary insomnia; G25.81 Restless legs syndrome; R06.09 Other forms of dyspnea
CPT/HCPCS: 99214

== ENCOUNTER → 2023-08-02 10:54 | Outpatient (BNVA) | payer MEDICARE, MEDICAID, SELFPAY | PROVIDERS: PCP Internal Medicine; Visit Provider Hospitalist | DX: G47.33 Obstructive sleep apnea (adult) (pediatric) (principal); F51.01 Primary insomnia; G25.81 Restless legs syndrome; R06.09 Other forms of dyspnea; Z99.89 Dependence on other enabling machines and devices | CPT/HCPCS: 99212 ==

== ENCOUNTER 2023-08-28 08:34 | Outpatient (REF) | payer MEDICARE, MEDICAID, SELFPAY ==
--- NOTE | 2023-08-28 09:41 | MHC.AU.HA3 ---
Hearing Instrument Follow-Up- Binaural Date of Visit: 08/28/23 Right Ear: Luis, Model, Color, Serial Number: Emery Davis P70-R SN: [id number] Color: Velvet black Scheme Technician Repair Warranty: 06/25/2025 Scheme Technician Loss and Damage Warranty: 06/25/2025 [facility] Service Plan: 04/25/2023 Battery Size: Rechargeable Or Manager/Slim Tube: Earmold/Dome/CShell/SlimTip:Microsonic M35 canal shell Type of Wax Guard: Dispensed By: [facility] Date of Fittin04/25/2022 Left Ear: Luis, Model, Color, Serial Number: Emery Davis P70-R SN: [id number] Color: Velvet black Scheme Technician Repair Warranty: 06/25/2025 Scheme Technician Loss and Damage Warranty: 06/25/2025 [facility] Service Plan: 04/25/2023 Battery Size: Rechargeable Or Manager/Slim Tube: Earmold/Dome/CShell/SlimTip: Microsonic M35 canal shell Type of Wax Guard: Dispensed By: [facility] Date of Fittin04/25/2022 Follow-Up Summary: Here with . She reports he isn't hearing at all. Reports TV volume is up. Cleaned and checked aids and earmolds, replaced tubes. Listening check positive. Otoscopy clear. Left mold is splitting- fits well, ordering replacement. Juve reports improvement after tubing change. If they continue to feel that Juve is not hearing well after maintenance, advised to request PO for hearing eval as it has been 1.5 years Recommendations: Recommendations: Patient will be contacted when materials have arrived. Recommendations (Other): New earmold ordered. Diagnosis Code(s): Primary Diagnosis: H90.3 Bilateral Sensorineural Hearing Loss Signature: Provider: Christiano Contreras, [facility]
== END 2023-08-28 08:35 | disposition home or self-care (01) ==
LOC: HO.HAP 08:34
PROVIDERS: Visit Provider Internal Medicine
DX: Z46.1 Encounter for fitting and adjustment of hearing aid (principal); H90.3 Sensorineural hearing loss, bilateral
CPT/HCPCS: 92593; 99499

== ENCOUNTER 2023-10-10 14:29 | Outpatient (REF) | payer MEDICARE, MEDICAID, SELFPAY ==
--- NOTE | 2023-10-10 15:20 | MHC.AU.HA3 ---
Hearing Instrument Follow-Up- Binaural Date of Visit: 10/10/23 Right Ear: Luis, Model, Color, Serial Number: Emery Davis P70-R SN: [id number] Color: Velvet black Etiologist Repair Warranty: 06/25/2025 Etiologist Loss and Damage Warranty: 06/25/2025 [facility] Service Plan: 04/25/2023 Battery Size: Rechargeable Network Consultant/Slim Tube: Earmold/Dome/CShell/SlimTip:Microsonic M35 canal shell Type of Wax Guard: Dispensed By: [facility] Date of Fittin04/25/2022 Left Ear: Luis, Model, Color, Serial Number: Emery Davis P70-R SN: [id number] Color: Velvet black Etiologist Repair Warranty: 06/25/2025 Etiologist Loss and Damage Warranty: 06/25/2025 [facility] Service Plan: 04/25/2023 Battery Size: Rechargeable Network Consultant/Slim Tube: Earmold/Dome/CShell/SlimTip: Microsonic M35 canal shell Type of Wax Guard: Dispensed By: [facility] Date of Fittin04/25/2022 Follow-Up Summary: Dispensed new left earmold. Fit looks good. Ran feedback contract negotiation manager. Increased overall gain 4 steps at patient request. Good subjective comfort and benefit reported. Juve's notes they are planning to ask their new PCP for a referral so he can get an updated hearing test soon. Recommendations: Recommendations: Hearing instrument maintenance in 6 months, or sooner if needed. Diagnosis Code(s): Primary Diagnosis: H90.3 Bilateral Sensorineural Hearing Loss Signature: Provider: Christiano Contreras, [facility]
== END 2023-10-10 14:30 | disposition home or self-care (01) ==
LOC: HO.HAP 14:29
PROVIDERS: Visit Provider Internal Medicine
DX: Z46.1 Encounter for fitting and adjustment of hearing aid (principal); H90.3 Sensorineural hearing loss, bilateral
CPT/HCPCS: V5264

== ENCOUNTER 2023-11-15 09:42 | Outpatient (AMB) | payer MEDICARE, MEDICAID, SELFPAY ==
--- NOTE | 2023-11-15 10:15 | A.OFFVIS_ITS ---
Intake Visit Reasons: 6M Follow Up-Med Review(Tamsulosin) Intake Note: Patient is Present for Follow Up Med Review Urology Medication: Tamsulosin Antibiotic Allergies:None Blood Thinners: Aspirin Patient is on Trulicity Stores Despatch Hand Required: No Private Investigator Surveillance: Private Investigator Surveillance Present Accompanied by: Spouse Allergies bupropion [From WELLBUTRIN] Allergy (Severe, Verified 11/15/23 10:16) Hallucinations HPI Comments Details: ?Juve is a pleasant male. He is a patient of Dr. Ga. He is seen for the following urologic conditions - lower urinary tract symptoms - complex renal cyst Six-month follow-up Accompanied by his PVR 0 cc Continue with tamsulosin Son has completed radiation for recurrent prostate cancer Six-month follow-up tele Lower urinary tract symptoms Primary issue of nocturia x2 Also with weakness of stream Background of Parkinson's disease and diabetes Current therapeutic - doxazosin 4 mg - did not take - failed prior use of tamsulosin PSA 12/14 1.0 Continue with use of urinal in order to reduce accidents Renal cyst with nephrolithiasis Prior CT scan in emergency room with stone at [facility] - ultrasound 1 cm right lower pole, small possible neoplasm - 12/13 CT scan 1 cm calyceal renal stone, bilateral simple cyst, no evidence of neoplasm - 01/13 renal ultrasound 1 cm right stone, bilateral cysts up to 5 cm on left side Patient and based on prior discussions have agreed for surveillance [facility] Medical History Restless leg syndrome Dyspnea Insomnia Bipolar 1 disorder Diabetes mellitus, type II Kidney cysts Chronic rhinitis Renal stones Benign prostatic hyperplasia with lower urinary tract symptoms Parkinson disease JOSELITO on CPAP Surgical History History of surgery Family History Father No problems noted. Mother No problems noted. Social History Patient Tobacco Use Status: Former Tobacco user Tobacco use type: Cigarette Years Smoked: 30 years Assessment & Plan Assessment & Plan (1) Lower urinary tract symptoms due to benign prostatic hyperplasia: Code(s): N40.1 - Benign prostatic hyperplasia with lower urinary tract symptoms Category: Medical Plan Six-month follow-up tele Patient Instructions: Imaging studies, laboratory and physical exam results were discussed and reviewed in detail. No major barriers to patient understanding were identified. An opportunity to ask questions regarding the treatment plan was provided. All questions were answered. The patient expressed understanding and agreement with the above treatment plan. The patient is aware they should contact our office by phone for worsening of their current condition or the appearance of new urologic symptoms. Compliance is encouraged with any medications and followup testing that is ordered. It is a privilege to participate in the urologic care of your patient. If you have any questions or concerns regarding treatment for the above conditions, or other urologic issues, please do not hesitate to contact me. The office telephone contact is [phone]. This note is constructed using voice recognition software. While every effort has been made to ensure accuracy front office associate errors may have been included. Yours sincerely, Dr Vladimir Doyle MD, [facility] - Urology Providers of Expert, Compassionate Care for the Genitourinary System Coding Level of Care Code Est Pt Level 3 (77119) Diagnoses Lower urinary tract symptoms due to benign prostatic hyperplasia N40.1
== END 2023-11-15 10:37 | disposition home or self-care (01) ==
PROVIDERS: PCP Internal Medicine; Visit Provider Urology
DX: N40.1 Benign prostatic hyperplasia with lower urinary tract symptoms (principal)
CPT/HCPCS: 99213

== ENCOUNTER → 2023-11-15 09:42 | Outpatient (BNVA) | payer MEDICARE, MEDICAID, SELFPAY | PROVIDERS: PCP Internal Medicine; Visit Provider Urology | DX: N40.1 Benign prostatic hyperplasia with lower urinary tract symptoms (principal); R35.1 Nocturia; N28.1 Cyst of kidney, acquired; R39.12 Poor urinary stream; Z86.73 Personal history of transient ischemic attack (TIA), and cerebral infarction without residual deficits | CPT/HCPCS: 99212 ==

== ENCOUNTER 2024-01-30 08:14 | Outpatient (REF) | payer MEDICARE, MEDICAID, SELFPAY ==
--- NOTE | 2024-01-30 14:30 | MHC.AU.HA3 ---
Hearing Instrument Follow-Up- Binaural Date of Visit: 01/30/24 Milk Truck Driver Used: Right Ear: Make, Model, Color, Serial Number: Emery Davis P70-R SN: [id number] Color: Velvet black Concrete Spreader Repair Warranty: 06/25/2025 Concrete Spreader Loss and Damage Warranty: 06/25/2025 [facility] Service Plan: 04/25/2023 Battery Size: Rechargeable Account Associate/Slim Tube: Earmold/Dome/CShell/SlimTip:Microsonic M35 canal shell Type of Wax Guard: Dispensed By: [facility] Date of Fittin04/25/2022 Left Ear: Luis, Model, Color, Serial Number: Emery Davis P70-R SN: [id number] Color: Velvet black Concrete Spreader Repair Warranty: 06/25/2025 Concrete Spreader Loss and Damage Warranty: 06/25/2025 [facility] Service Plan: 04/25/2023 Battery Size: Rechargeable Account Associate/Slim Tube: Earmold/Dome/CShell/SlimTip: Microsonic M35 canal shell Type of Wax Guard: Dispensed By: [facility] Date of Fittin04/25/2022 Follow-Up Summary: Juve is here for re-evaluation with his , reporting he is not hearing as well as he should. Hearing is essentially stable. Hearing aids in need of tubing change, right tubing falls out of earmold. Mics had significant debris. Listening check ok after tubing change, cleaning, earmold cleaning. Pt reported improved sound quality. Return for further adjustments if needed. Recommendations: Recommendations: Hearing instrument follow-up or maintenance as needed. Diagnosis Code(s): Primary Diagnosis: H90.3 Bilateral Sensorineural Hearing Loss Signature: Provider: Jeff Park, CCC-A
== END 2024-01-30 08:15 | disposition home or self-care (01) ==
LOC: HO.SH 08:14
PROVIDERS: Visit Provider Internal Medicine
DX: Z01.118 Encounter for examination of ears and hearing with other abnormal findings (principal); H90.3 Sensorineural hearing loss, bilateral
CPT/HCPCS: 92552; 92556; 92593; 99499

== ENCOUNTER 2024-04-22 09:59 | Outpatient (AMB) | payer MEDICARE, MEDICAID, SELFPAY ==
--- NOTE | 2024-04-22 10:02 | MHC.OFFVIS ---
Vital Signs 04/22/24 10:05 Height 5 ft 7 in Weight 250 lb 3.594 oz BMI 39.2 BP 140/78 H Blood Pressure Location Lt brachial Position Sitting Pulse 75 Pulse Source Pulse Oximeter Pulse Oximetry (%) 97 Oxygen Delivery Method Room Air Intake Visit Reasons: COPD Allergies bupropion [From WELLBUTRIN] Allergy (Severe, Verified 04/22/24 10:10) Hallucinations HPI Comments Details: the patient is a 79-year-old gentleman known obstructive sleep apnea on CPAP in addition to Parkinson's disease. Overall the patient has been doing well from a respiratory status. He does have an intermittent cough but minimal. He also complains of nasal congestion usually does clears his nose without any difficulty. I encouraged him to make sure that his nose is cleared with saline prior to putting him CPAP. He has been using the CPAP therapy in the therapy has been affecting beneficial. He does uses CPAP for more than 4 hours a night. He is having difficulties, with his current mask, F20. he did go to his [employer] and he was set up with the Iris gel mask. hopefully this mask works better for him. Otherwise patient is without any other complaints. 07/20/2021 the patient is here for a pulmonary follow-up visit. Overall he is doing well. He does continue to use his BiPAP therapy. He did get a new replacement machine. appears to be working very well. His current settings are 17/12. I did download the machine and his AHI is close to 0.1. However his lung volumes seems to be high between 600-900 mL. Therefore although he is doing well will be reasonable to try to decrease some of the driving pressure to try to minimize the over distension of the lungs. Therefore I decreased to 16/12. He will continue that and monitor his AHI. Will be able to making further adjustments online with his new more sophisticated BiPAP. He continues to have a hard time sleeping. He tried multiple agents already. He does not respond well to medications. We did talk about behavioral sleep therapy. he will try adding some of those techniques to his sleep. We also did talk about herbal sleep therapies. he will also consider those. Otherwise patient is without any other complaints. 07/30/2022 the patient is here for a pulmonary follow-up visit. The patient overall is doing about the same. His Parkinson's disease about the same. He continues use the BiPAP every night at the current settings. His AHI still below 1. Although he does get a lot of air leakage even though he has a fullface mask. He has found that the medium size fullface mask works better for him. Although sometimes when he opens up his mouth it does come out and causes the air leakage. However, he does feel that he does better with a medium-size mask. I did recommend he can try chinstrap that he can use along with the fullface mask to see if this provides better seal. Will submit a prescription to his [employer] company come out life support. In addition to this he still struggling with sleep. His using Kenzie and would at nighttime. He will try adding melatonin to the regimen. In addition to that which check his iron stores and ferritin to make sure that he is not are depleted potentially resulting in rests like at nighttime. 08/02/2023 the patient is here for pulmonary follow-up visit. The patient since we last spoke did have a cardiac event requiring quadruple bypass surgery at [facility]. The patient afterwards developed a pneumonia. Had a CT scan of the chest done March 2023 which I personally reviewed demonstrating airspace disease in addition to the chronic pleural changes secondary to pleural thickening and pleural effusion after his surgery. He did recover he then went to rehab and now has doing better. He also has some delirium on the hospital. While in the hospital he could not tolerate the BiPAP due to his altered mental status. But now he is back to using it. He can not find a good fitting mask. He is tried multiple different types. Currently he is using the F20 mask. He does get supplies from by supplies. I do believe that enough 20 AirTouch foam mask may be a good option for him to bed get a better seal around the face. We did give him a script for him to take and also will send a script to his [employer] company. The patient also has been having issues with shortness a breath. He is noticed increased lower extremity edema. Does take Lasix twice a day. He also had a pulse ox of 94% which is a little low with normal for him. His respiratory exam is okay just diminished on the left side where he has this small effusion. He had a chest x-ray May still demonstrating persistent effusion although very small. I did recommend he take additional Lasix for the weekend least 1 more tablet in the morning and then if any persistent issues she should call his french folder. 04/22/2024 the patient is here for a pulmonary follow-up visit. Overall he is doing okay. He has been using his BiPAP every night the therapy has been affecting beneficial. We did download the data and he has been using more than 4 hours. He does have a fullface mask and sometimes it does leak air. His does complain because it does keep her up. She is also concerned that his sleep is fragmented. He does wake up at times and can not go back to sleep so he goes to a computer in place games. Will go ahead and increase his trazodone to see if we can get him to more therapeutic level to make sure that he sleeps better and not has fragmented sleep. Also he did follow-up with ENT because of a chronic cough. Apparently he did have a CT scan of the sinuses at [facility]. I do not have those results but he was told that everything was okay. Will have him get a chest x-ray at this time. Cough seems to be okay most likely reflux related. He knows about the reflux diet. Also should be sleeping elevated. [facility] Medical History (Updated 04/22/24 @ 19:28 by Chaim Pastrana MD) Restless leg syndrome Dyspnea Insomnia Bipolar 1 disorder Diabetes mellitus, type II Kidney cysts Chronic rhinitis Renal stones Benign prostatic hyperplasia with lower urinary tract symptoms Parkinson disease JOSELITO on CPAP Surgical History History of surgery Family History Father No problems noted. Mother No problems noted. Social History Patient Tobacco Use Status: Former Tobacco user Tobacco use type: Cigarette Years Smoked: 30 years Review of Systems Const Reports difficulty sleeping and Denies night sweats ENT Denies change in voice, Denies lip swelling, Denies mouth pain, Reports nasal congestion, Reports nasal discharge and Denies tongue swelling Card Denies chest pain and Reports dyspnea on exertion Resp Reports cough and Reports dyspnea on exertion GI Denies abdominal pain Musc Reports abnormal gait Neuro Reports Neuro-related abnormal movements, Reports abnormal gait and Reports tremor(s) Psych Denies no additional complaints Jose Luis/Lymph Denies easy bleeding and Denies lymphadenopathy Aller/Immun Denies lip swelling and Denies tongue swelling Physical Exam Vital Signs: Last Vital Signs Pulse 75 04/22/24 10:05 BP 140/78 H 04/22/24 10:05 Pulse Ox 97 04/22/24 10:05 Oxygen Delivery Method Room Air 04/22/24 10:05 BMI result Body Mass Index 39.2 Const General: alert HEENT General nose exam: Abnormal external nose present and Nasal discharge present Eyes Pupils: Equal, round and reactive pupils present Neck Neck: Yes normal visual inspection, Yes full ROM and Yes no lymphadenopathy Chest Chest palpation & inspection: normal inspection of the chest Resp Effort & Inspection: normal respiratory effort Auscultation: diminished lung sounds Cardio Rate: regular rate Rhythm: regular rhythm Heart sounds: S1 normal heart sound present and S2 normal heart sound present GI Palpation (GI): Soft to palpation and nontender Auscultation: normal bowel sounds General: Yes no CVA tenderness Back/Spine/Pelvis Back: no CVA tenderness Skin General skin exam: rashes and/or lesions noted Neuro Cranial nerves: Yes Equal, round and reactive pupils present Assessment & Plan Assessment & Plan (1) JOSELITO on CPAP: Code(s): G47.33 - Obstructive sleep apnea (adult) (pediatric); Z99.89 - Dependence on other enabling machines and devices Category: Medical (2) Insomnia: Code(s): G47.00 - Insomnia, unspecified Category: Medical Qualifiers: Insomnia type: primary Qualified Code(s): F51.01 - Primary insomnia (3) Restless leg syndrome: Code(s): G25.81 - Restless legs syndrome Category: Medical (4) Dyspnea: Code(s): R06.00 - Dyspnea, unspecified Category: Medical Qualifiers: Dyspnea type: dyspnea on exertion Qualified Code(s): R06.09 - Other forms of dyspnea (5) Parkinson disease: Code(s): G20 - Parkinson's disease Category: Medical Qualifiers: Fluctuating manifestations: unspecified whether manifestations fluctuate Dyskinesia presence: unspecified whether dyskinesia Qualified Code(s): G20.A1 - Parkinson's disease without dyskinesia, without mention of fluctuations Plan continue BIPAP 16/12, medium facemask, requesting airtouch foam F20 med Behavioral sleep therapies increase Trazodone 50mg->100mg QHS increase exercise routine CXR Follow up 6 months Orders: Orders XR chest 2V Today R06.09 - Other forms of dyspnea Medications: Changed From trazodone 50 mg PO BEDTIME PRN N40.1 - Benign prostatic hyperplasia with lower urinary tract symptoms To trazodone 100 mg (2 x 50 mg) PO BEDTIME 60 tabs 6RF 30 days N40.1 - Benign prostatic hyperplasia with lower urinary tract symptoms Coding Level of Care Code Est Pt Level 4 (10133) Diagnoses JOSELITO on CPAP G47.33; Z99.89 Primary insomnia F51.01 Insomnia type: primary Restless leg syndrome G25.81 Dyspnea on exertion R06.09 Dyspnea type: dyspnea on exertion Parkinson's disease, unspecified whether dyskinesia present, unspecified whether manifestations fluctuate G20.A1 Fluctuating manifestations: unspecified whether manifestations fluctuate Dyskinesia presence: unspecified whether dyskinesia Time Spent (min) 16
[2024-04-22 10:05] VITALS: BP 140/78; PULSE 75; O2SAT 97; BMI 39.2
--- OUTSIDE RECORDS SUMMARY | 2024-04-22 11:46 | XMS_ITS ---
Author Organization [facility] Address [address] [place] [address] Care Team Providers Care Leather Finisher Name Role Phone El Venegas Primary Care Provider U arianna Rowland MD,MPH, Eric Miguel Allergies Allergen (clinical drug ingredient) Drug/Non Drug Allergy documented on EMR Reaction Allergy Type Onset Date Status bupropion Wellbutrin SR Unknown Drug Allergy Act yasmani REASON FOR VISIT throat irritation Medications Medication SIG (Take, Route, Frequency, Duration) Notes Start Date End Date Status Carbidopa-Levodopa 25-100 MG 1 tablet as needed Orally Two times a Week Active Atorvastatin Calcium 40 MG 1 tablet Oral ly Once a day Active Furosemide 20 MG 1 tablet Orally Once a day Active Donepezil HCl 5 MG 1 tablet at bedtime Orally Once a day Active Lisinopril 20 MG 1 tablet Orally Once a day Active Clopidogrel Bisulfate 75 MG 1 tablet Ora lly Once a day Active Isosorbide Dinitrate 60 mg Active amLODIPine Besylate 5 MG 1 tablet Orally Once a day Active Metoprolol Succinate 25 MG 1 capsule Ora lly Once a day Active Flonase Allergy Relief 50 MCG/ACT 1 spray in each nostril Nasally Twice a day Active HumaLOG 100 UNIT/ML as directed Injection Active Aspirin 81 81 MG 1 tablet Orally Once a day Active Tamsulosin HCl 0.4 MG 1 capsule Orally O nce a day Active traZODone HCl 50 MG 1 tablet at bedtime as needed Orally Once a day Active Levocetirizine Dihydrochloride Active Trulicity 3 MG/0.5ML as directed Subcutaneous Active Tresiba 100 UNIT/ML as directed Subcutaneous Active Famotidine 40 MG 1 tablet Orally Once a day with evening meal for 90 days 04/08/2024 07/02/2025 Active Allopurinol 300 MG 1 tablet Orally Once a day Active Sertraline HCl 50 MG 1 tablet Orally Onc e a day Active Problems Problem Type SNOMED Code ICD Code Onset Dates Problem Status W/U Status Risk Notes Problem 858374230 Laryngopharyngea l reflux (LPR) (K21.9) Active confirmed Problem [id number] JOSELITO on CPAP (G47.33) Active confirmed Problem 503158723 Parkinson diseas e, symptomatic (G20.A1) Active confirmed Vital Signs Blood pressure systolic 120 mm Hg 04/08/19 25 Blood pressure diastolic 80 mm Hg 025 Height 67 in 04/08/2024 Weight 235 lbs 04/08/2024 BMI 36.8 kg/m2 04/08/2024 Encounters Encounter Location Date Provider Diagnosis [facility] [address] [place] [address] 04/08/2024 Eric Rowland Laryngopharyngeal reflux (LPR) K21.9 ; JOSELITO on CPAP G47.33 and Parkinson disease, symptomatic G20.A1 Assessments Encounter Date Diagnosis (ICD Code) Assessment Notes Treatment Notes Treatment Clinical Notes Section Notes 04/08/2024 Laryngopharyngeal reflux (LPR) (ICD-10 - K21.9) 79-year-old man relatively debilitated with extensive cardiac disease status post CABG, who also has Parkinson's. Symptoms and examination are consistent with LPR. I explained the pathophysiology of the events during sleep with his CPAP machine and he and his understand. I have suggested famotidine 40 mg nightly with his evening meal and they understand. They will follow with the primary team and I will see him as needed. 04/08/2024 JOSELITO on CPAP (ICD-10 - G47.33) 04/08/2024 Parkinson disease, symptomatic (ICD-10 - G20.A1) Plan Of Treatment Medication Medication Name Sig Start Date Stop Date Notes Famotidine 40 MG 1 tablet Orally Once a day with evening meal for 90 days 04/08/2024 07/02/2025 Treatment Notes Assessment Notes Laryngopharyngeal reflux (LPR) 79-year-o ld man relatively debilitated with extensive cardiac disease status post CABG, who also has Parkinson's. Symptoms and examination are consistent with LPR. I explained the pathophysiology of the events during sleep with his CPAP machine and he and his understand. I have suggested famotidine 40 mg nightly with his evening meal and they understand. They will follow with the primary team and I will see him as needed. Next Appt Details Follow Up: prn, Reason: Progress Notes * Juve COPELAND PDOB:1944 (79 yo M)Acc No.[id number]:04/08/2024 Progress Notes Patient:?Juve COPELAND P Provider:?Eric Rowland MD, MPH :1945???Age:79 Y???Sex:Male Wilman e:04/08/2024 Address:[address] [place], [place] [id number] Pcp:El Venegas Subjective: * Chief Complaints: * ???1. Throat irritation. * HPI: ???General:?79-year-old man seen in consultation at the request of Dr. Venegas with a complaint of throat irritation. He and his state that he gets stuff in his throat that sometimes chokes him at night. His nose bleeds and a few times he has awakened with his CPAP machine full of blood. He has complained of this issue since his surgery.? He is on Asa and Plavix. Not on anything for GERD. Has been on CPAP for years.? He is able to swallow but has to do so slowly. He chokes a lot when eating. ?Denies : fever.?Denies : night sweats.?Ear:?Denies : hearing loss.?Denies : otalgia.?Nose:?c/o epistaxis.?Denies : nasal congestion.?Denies : facial/sinus pain.?Denies : nasal discomfort.?Throat:?c/o dysphagia.? c/o foreign body sensation.?Denies : sore throat.?Denies : cough.?Denies : stridor.?Denies : hoarseness.?Neck:?Denies : pain.?Denies : mass/swelling.? * Medical History:?Diabetes, H ypertension, High cholesterol, Parkinson's. 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 * Hospitalization/Major Diagno stic Procedure:?Denies Past Hospitalization. * Family History:?Father: dece ased.?grandfather: .?grandmother: .?Mother: .? * Medications:?Taking Trulicit y 3 MG/0.5ML Solution Auto-injector as directed Subcutaneous , Taking Tresiba 100 UNIT/ML Solution as directed Subcutaneous , Taking HumaLOG 100 UNIT/ML Solution as directed Injection , Taking Aspirin 81 81 MG Tablet Chewable 1 tablet Orally Once a day , Taking Tamsulosin HCl 0.4 MG Capsule 1 capsule Orally Once a day , Taking traZODone HCl 50 MG Tablet 1 tablet at bedtime as needed Orally Once a day , Taking Levocetirizine Dihydrochloride , Taking Metoprolol Succinate 25 MG Capsule ER 24 Hour Sprinkle 1 capsule Orally Once a day , Taking Flonase Allergy Relief 50 MCG/ACT Suspension 1 spray in each nostril Nasally Twice a day , Taking Clopidogrel Bisulfate 75 MG Tablet 1 tablet Orally Once a day , Taking Isosorbide Dinitrate , Notes to Pharmacist: 60 mg, Taking amLODIPine Besylate 5 MG Tablet 1 tablet Orally Once a day , Taking Carbidopa-Levodopa 25-100 MG Tablet 1 tablet as needed Orally Two times a Week , Taking Atorvastatin Calcium 40 MG Tablet 1 tablet Orally Once a day , Taking Furosemide 20 MG Tablet 1 tablet Orally Once a day , Taking Donepezil HCl 5 MG Tablet 1 tablet at bedtime Orally Once a day , Taking Lisinopril 20 MG Tablet 1 tablet Orally Once a day , Taking Allopurinol 300 MG Tablet 1 tablet Orally Once a day , Taking Sertraline HCl 50 MG Tablet 1 tablet Orally Once a day , Medication List reviewed and reconciled with the patient * Allergies:?Wellbutrin SR: Al lergy. Objective: * Vitals:?BP:120/80mm Hg, Ht: 67 in, Wt:235lbs, BMI:36.8Index. * Examination: ???General: ?General appearance?wdwn, NAD, obese, pleasant.?Eyes?Normal lids, EOM intact, no erythema.?Lungs:?good air entry bilaterally.?Skin:?no rash, no hives.?Neurologic exam:?A & O x 3, CN II-XII intact, resting tremors of the head.?Voice:?normal.?Ears?normal pinnae bilaterally, normal ear canal bilaterally, normal TM bilaterally.?Lymph?No cervical lymphadenopathy.?Musculoskeletal?Neck full range of motion.?Extremities:?normal ROM , no clubbing, no edema.?nose: dorsum straight, normal, septum midline, turbinates normal, middle meati normal,mucosa irritated, small area with fresh blood on the right septal mucosa covered with a piece of Surgicel and bacitracin.?Nasopharynx:?eustachian tube orifices normal bilaterally, normal mucosa, (fiberoptic exam).?Oral Cavity/Oropharynx:?lips normal, buccal mucosa normal, teeth normal, gingiva normal, floor of mouth normal, tongue normal, palate normal, tonsils 2+, pharyngeal mucosa nl, retromolar trigone nl.?Larynx/Hypopharynx?Base of tongue normal, supraglottis normal, true vocal cords normal with normal mobility,post-cricoid region tissue moderately edematous and pale, no mass or lesion and no pooling of secretions,?piriform sinuses normal, subglottis normal, (fiberoptic exam).?Neck:?No adenopathy, No masses, Parotid glands normal, Submandibular glands normal, Thyroid gland not palpable.?Head and Face:?normal facial features.? * Physical Examination:? Assessment: * Assessment: 1.?Laryngopharyngeal reflux (LPR) - K21.9 (Primary)???2.?JOSELITO on CPAP - G47.33???3.?Parkinson disease, symptomatic - G20.A1??? Plan: * Treatment: * Procedures:?Mirror examination is insufficient to evaluate the nasopharynx, hypopharynx and larynx. With proper consent obtained, the patient is positioned in the examination chair. Tetracaine and Afrin was sprayed into both nasal cavities. A flexible fiberoptic laryngoscope was passed through the right then left nasal cavity. The nasal cavity and nasopharynx, hypopharynx and larynx exams were as detailed in the exam section of this office note. After the examination, the fiberoptic scope was removed. The patient tolerated the procedure well. ? * Procedure Codes:?61136 FIB L aryngoscopy, 1036F TOBACCO NON-USER * Preventive Medicine:? ??Immunizations:?Influenza Immunization?Influenza Immunization?Yes.?covid vaccinated. * Follow Up:?prn * Images: * Sign off status: Completed true * Provider:?Eric Rowland MD, MPH Da te:?04/08/2024 Generated for Soni casimiro/Jose/eTransmitting on:?04/22/2024 11:46 AM EST History and Physical Notes * HPI (History of Present Illness) Category Sub-Category Detail Notes Category Not es Throat hoarseness sore throat dysphagia foreign body sensation cough stridor Ear hearing loss otalgia Nose nasal congestion epistaxis facial/sinus pain nasal discomfort Neck pain mass/swelling General fever night sweats Examination Category Sub-Category Detail Notes Category Not es General Lungs: good air entry bilaterally Extremities: normal ROM , no club tierra, no edema General appearance wdwn, NAD, obese, pl easant Skin: no rash, no hives Neurologic exam: A & O x 3, CN II-XII intact, resting tremors of the head Voice: normal Ears normal pinnae bilate rally, normal ear canal bilaterally, normal TM bilaterally nose: dorsum straight, nor mal, septum midline, turbinates normal, middle meati normal, mucosa irritated, small area with fresh blood on the right septal mucosa covered with a piece of Surgicel and bacitracin Nasopharynx: eustachian tube orif ices normal bilaterally, normal mucosa, (fiberoptic exam) Oral Cavity/Oropharynx: lips normal, buc giovani mucosa normal, teeth normal, gingiva normal, floor of mouth normal, tongue normal, palate normal, tonsils 2+, pharyngeal mucosa nl, retromolar trigone nl Neck: No adenopathy, No ma sses, Parotid glands normal, Submandibular glands normal, Thyroid gland not palpable Head and Face: normal facial featur es Larynx/Hypopharynx Base of tongue david l, supraglottis normal, true vocal cords normal with normal mobility, post-cricoid region tissue moderately edematous and pale, no mass or lesion and no pooling of secretions, piriform sinuses normal, subglottis normal, (fiberoptic exam) Eyes Normal lids, EOM int act, no erythema Musculoskeletal Neck full range of m otion Lymph No cervical lymphade nopathy
--- OUTSIDE RECORDS SUMMARY | 2024-04-22 11:47 | XMS_ITS | Clinical Summary ---
Author Organization [facility] Address [address] [place] [address] Care Team Providers Care Coater Carbon Paper Name Role Phone Unavailable Primary Care Provider Unavailabl e Social History Tobacco Use Types Packs/Day Years Used Date Smoking Tobacco: Never Assessed Sex and Gender Information Value Date Recorded Sex Assigned at Not on file Gender Identity Not on file Sexual Orientation Not on file Job Start Date Occupation Industry Not on file Not on file Not on file Plan of Treatment Not on file
--- OUTSIDE RECORDS SUMMARY | 2024-04-22 11:47 | XMS_ITS | Patient Health Record ---
Author Organization [facility] Address [address] [place] [address] Care Team Providers Care Insurance Associate Name Role Phone El Venegas Primary Care Provider U arianna Rowland MD,MPH, Ericko Miguel [phone] Allergies Allergen (clinical drug ingredient) Drug/Non Drug Allergy documented on EMR Reaction Allergy Type Onset Date Status bupropion Wellbutrin SR Unknown Drug Allergy Act yasmani Reason For Referral No Information Medications Medication SIG (Take, Route, Frequency, Duration) Notes Start Date End Date Status Famotidine 40 MG 1 tablet Orally Once a day with evening meal for 90 days 04/08/2024 07/02/2025 Active Allopurinol 300 MG 1 tablet Orally Once a day Active Metoprolol Succinate 25 MG 1 capsule Ora lly Once a day Active Sertraline HCl 50 MG 1 tablet Orally Onc e a day Active Flonase Allergy Relief 50 MCG/ACT 1 spray in each nostril Nasally Twice a day Active Clopidogrel Bisulfate 75 MG 1 tablet Ora lly Once a day Active Isosorbide Dinitrate 60 mg Active Trulicity 3 MG/0.5ML as directed Subcutaneous Active amLODIPine Besylate 5 MG 1 tablet Orally Once a day Active Tresiba 100 UNIT/ML as directed Subcutaneous Active Carbidopa-Levodopa 25-100 MG 1 tablet as needed Orally Two times a Week Active HumaLOG 100 UNIT/ML as directed Injection Active Atorvastatin Calcium 40 MG 1 tablet Oral ly Once a day Active Aspirin 81 81 MG 1 tablet Orally Once a day Active Furosemide 20 MG 1 tablet Orally Once a day Active Tamsulosin HCl 0.4 MG 1 capsule Orally O nce a day Active Donepezil HCl 5 MG 1 tablet at bedtime Orally Once a day Active traZODone HCl 50 MG 1 tablet at bedtime as needed Orally Once a day Active Lisinopril 20 MG 1 tablet Orally Once a day Active Levocetirizine Dihydrochloride Active Problems Problem Type SNOMED Code ICD Code Onset Dates Problem Status W/U Status Risk Notes Problem [id number] JOSELITO on CPAP (G47.33) Active confirmed Problem 654462023 Laryngopharyngea l reflux (LPR) (K21.9) Active confirmed Problem 869374033 Parkinson diseas e, symptomatic (G20.A1) Active confirmed Vital Signs Blood pressure diastolic 80 mm Hg 04/08/2024 Height 67 in 04/08/2024 Blood pressure systolic 120 mm Hg 04/08/2024 Weight 235 lbs 04/08/2024 BMI 36.8 kg/m2 04/08/2024 Encounters Encounter Location Date Provider Diagnosis [facility] [address] [place] [address] 04/08/2024 Eric Rowland Laryngopharyngeal reflux (LPR) K21.9 ; JOSELITO on CPAP G47.33 and Parkinson disease, symptomatic G20.A1 Assessments Encounter Date Diagnosis (ICD Code) Assessment Notes Treatment Notes Treatment Clinical Notes Section Notes 04/08/2024 JOSELITO on CPAP (ICD-10 - G47.33) 04/08/2024 Laryngopharyngeal reflux (LPR) (ICD-10 - K21.9) [...] I will see him as needed. 04/08/2024 Parkinson disease, symptomatic (ICD-10 - G20.A1) Plan Of Treatment No Information Insurance Providers Payer Name Payer Address Payer Phone Subscriber Number Group Number Insured Name Patient Relationship to Insured Coverage Start Date Coverage End Date Medicare [employer] 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
--- OUTSIDE RECORDS SUMMARY | 2024-04-22 11:47 | XMS_ITS ---
Author Organization [facility] Address [address] [place] [address] Care Team Providers Care Illusionist Name Role Phone El Venegas Primary Care Provider U arianna Rowland MD,MPH, Eric Miguel REASON FOR VISIT throat irritation Encounters Encounter Location Date Provider Diagnosis [facility] [address] [place] [address] 03/10/2024 Eric Rowland Plan Of Treatment No Information Progress Notes * Juve CANDELARIA PDOB:1944 (79 yo M)Acc No.[id number]:03/10/2024 Progress Notes Patient:?Juve CANDELARIA Provider:?Eric Rowland MD, MPH :1945???Age:78 Y???Sex:Male Wilman e:03/10/2024 Address:[address] [place], [place] [id number] Pcp:El Venegas Subjective: * Chief Complaints: * ???1. Throat irritation. * Medical History:? Objective: * Vitals:? * Physical Examination:? Assessment: Plan: * Treatment: * Images: * Electronic signature of Robbie Rowland MD,MPH, MD, MPH on 04/22/2024 at 11:47 AM EST Sign off status: Pending * Provider:?Eric Rowland MD, MPH Da te:?03/10/2024 Generated for Printi ng/Fajagg/eTransmitting on:?04/22/2024 11:47 AM EST
== END 2024-04-22 10:40 | disposition home or self-care (01) ==
PROVIDERS: PCP Internal Medicine; Visit Provider Hospitalist
DX: G47.33 Obstructive sleep apnea (adult) (pediatric) (principal); Z99.89 Dependence on other enabling machines and devices; F51.01 Primary insomnia; G25.81 Restless legs syndrome; R06.09 Other forms of dyspnea; G20.A1 Parkinson's disease without dyskinesia, without mention of fluctuations
CPT/HCPCS: 99214

== ENCOUNTER → 2024-04-22 09:59 | Outpatient (BNVA) | payer MEDICARE, MEDICAID, SELFPAY | PROVIDERS: PCP Internal Medicine; Visit Provider Hospitalist | DX: G47.33 Obstructive sleep apnea (adult) (pediatric) (principal); G20.A1 Parkinson's disease without dyskinesia, without mention of fluctuations; G25.81 Restless legs syndrome; F51.01 Primary insomnia; R06.09 Other forms of dyspnea; N40.1 Benign prostatic hyperplasia with lower urinary tract symptoms; Z99.89 Dependence on other enabling machines and devices | CPT/HCPCS: 99212 ==

== ENCOUNTER 2024-05-14 08:42 | Outpatient (AMB) | payer MEDICARE, MEDICAID, SELFPAY ==
--- NOTE | 2024-05-14 08:46 | MHC.OFFVIS ---
Intake Visit Reasons: 6m/PVR Intake Note: Patient is present for 6M PVR Urology Medication:TAMSULOSIN,ALLOPURINOL,LISINOPRIL Antibiotic Allergy:NONE Blood Thinner:ASPIRIN Todays PVR:21ML'S Professor Of Music Required: No Allergies bupropion [From WELLBUTRIN] Allergy (Severe, Verified 05/14/24 08:47) Hallucinations HPI Comments Details: ?Juve is a pleasant male. He is a patient of Dr. Ga. He is seen for the following urologic conditions - lower urinary tract symptoms - complex renal cyst Six-month follow-up Accompanied by his PVR 21 cc Continues with tamsulosin Has urinary control Son has completed radiation for recurrent prostate cancer Six-month follow-up PVR Lower urinary tract symptoms Primary issue of nocturia x2 Also with weakness of stream Background of Parkinson's disease and diabetes Current therapeutic - doxazosin 4 mg - did not take - failed prior use of tamsulosin Went back on tamsulosin PSA 12/14 1.0 Continue with use of urinal in order to reduce accidents Renal cyst with nephrolithiasis Prior CT scan in emergency room with stone at [facility] - ultrasound 1 cm right lower pole, small possible neoplasm - 12/13 CT scan 1 cm calyceal renal stone, bilateral simple cyst, no evidence of neoplasm - 01/13 renal ultrasound 1 cm right stone, bilateral cysts up to 5 cm on left side Patient and based on prior discussions have agreed for surveillance [facility] Medical History (Updated 04/22/24 @ 19:28 by Chaim Pastrana MD) Restless leg syndrome Dyspnea Insomnia Bipolar 1 disorder Diabetes mellitus, type II Kidney cysts Chronic rhinitis Renal stones Benign prostatic hyperplasia with lower urinary tract symptoms Parkinson disease JOSELITO on CPAP Surgical History History of surgery Family History Father No problems noted. Mother No problems noted. Social History Patient Tobacco Use Status: Former Tobacco user Tobacco use type: Cigarette Years Smoked: 30 years Review of Systems Const Denies chills and Denies fever(s) Card Reports no additional complaints and Denies syncope Resp Denies cough GI Denies abdominal pain and Denies heartburn Reports as per HPI and Denies change in libido Neuro Denies syncope Psych Denies change in libido Endo Denies change in libido Physical Exam Const General: cooperative, healthy appearing, comfortable and no acute distress Orientation/consciousness: patient oriented x3 HEENT Face and sinus: Yes normal facial exam Mouth: moist mucous membranes Neck Neck: Yes normal visual inspection, Yes full ROM and Yes trachea midline Chest Chest palpation & inspection: normal inspection of the chest Resp Effort & Inspection: normal respiratory effort, able to speak in complete sentences and no respiratory distress GI Inspection: Yes normal to inspection Back/Spine/Pelvis Cervical Spine: normal cervical lordosis Thoracic/Lumbar Spine: thoracic and lumbar spine normal to inspection Skin General skin exam: no rashes or lesions noted Neuro General: patient oriented x3, gait normal, tone normal and moves all extremities Extrem General: Yes normal to inspection and Yes capillary refill normal Office Procedures Post Void Residual Post Residual Void Post Void Residual (PVR): 21 82846-Dken Void Residual by ultrasound Results AMB Urinalysis, Automated UA Leukoctes 15 Sophie/uL Last Edit by DOTTIE Bryson on 05/14/24 08:58 UA Nitrite Negative Last Edit by DOTTIE Bryson on 05/14/24 08:58 UA Urobilinogen 3.5 mg/dL Last Edit by DOTTIE Bryson on 05/14/24 08:58 UA Protein 3 mg/dL Last Edit by DOTTIE Bryson on 05/14/24 08:58 UA pH 6.0 Last Edit by DOTTIE Bryson on 05/14/24 08:58 UA Blood 0 Paul/uL Last Edit by DOTTIE Bryson on 05/14/24 08:58 UA Specific Liberty 1.015 Last Edit by DOTTIE Bryson on 05/14/24 08:58 UA Ketone Negative Last Edit by DOTTIE Bryson on 05/14/24 08:58 UA Bilirubin 0 mg/dL Last Edit by DOTTIE Bryson on 05/14/24 08:58 UA Glucose 0 mg/dL Last Edit by DOTTIE Bryson on 05/14/24 08:58 Results Reviewed Results Reviewed: Laboratory Last Values Urine pH (Auto) 6.0 05/14/24 08:58 Specific Liberty (Auto) 1.015 05/14/24 08:58 Urine Protein (Auto) 3 mg/dL 05/14/24 08:58 Glucose (UA)(Auto) 0 mg/dL 05/14/24 08:58 Urine Ketones (Auto) Negative 05/14/24 08:58 Urine Blood (Auto) 0 Paul/uL 05/14/24 08:58 Urine Nitrite (Auto) Negative 05/14/24 08:58 Urine Bilirubin (Auto) 0 mg/dL 05/14/24 08:58 Urine Urobilinogen (Auto) 3.5 mg/dL 05/14/24 08:58 Leukocyte Esterase (Auto) 15 Sophie/uL 05/14/24 08:58 Assessment & Plan Assessment & Plan (1) Benign prostatic hyperplasia with lower urinary tract symptoms: Code(s): N40.1 - Benign prostatic hyperplasia with lower urinary tract symptoms Category: Medical (2) Complex renal cyst: Code(s): N28.1 - Cyst of kidney, acquired Category: Medical Plan Six-month follow-up PVR Orders: Orders AMB Urinalysis Automated Today Z13.9 - Encounter for screening, unspecified Patient Instructions: This note is constructed using voice recognition software. While every effort has been made to ensure accuracy medical scientific officer errors may have been included. Imaging studies, laboratory and physical exam results were discussed and reviewed in detail. No major barriers to patient understanding were identified. An opportunity to ask questions regarding the treatment plan was provided. All questions were answered. The patient expressed understanding and agreement with the above treatment plan. The patient is aware they should contact our office by phone for worsening of their current condition or the appearance of new urologic symptoms. Compliance is encouraged with any medications and followup testing that is ordered. It is a privilege to participate in the urologic care of your patient. If you have any questions or concerns regarding treatment for the above conditions, or other urologic issues, please do not hesitate to contact me. The office telephone contact is [phone]. Sincerely, Dr Vladimir Doyle MD, [facility] - Urology Compassionate Specialist Care for the Genitourinary System Coding Level of Care Code Est Pt Level 3 (80873) Diagnoses Benign prostatic hyperplasia with lower urinary tract symptoms N40.1 Complex renal cyst N28.1 CPT Codes Post Residual Void - PVR CPT Code: 40162-Qskn Void Residual by ultrasound ([id number])
--- OUTSIDE RECORDS SUMMARY | 2024-05-14 09:08 | XMS_ITS | Patient Health Record ---
Author Organization [facility] Address [address] [place] [address] Care Team Providers Care Photolettering Machine Operator Name Role Phone El Venegas Primary Care Provider U arianna Rowland MD,MPH, Ericko Miguel [phone] Allergies Allergen (clinical drug ingredient) Drug/Non Drug [...] Problem Status W/U Status Risk Notes Problem [id number] JOSELITO on CPAP (G47.33) Active confirmed Problem 224126381 Laryngopharyngea l reflux (LPR) (K21.9) Active confirmed Problem 322755340 Parkinson diseas e, symptomatic (G20.A1) Active confirmed Vital Signs Blood pressure diastolic 80 mm Hg 04/08/2024 Height 67 in 04/08/2024 Blood pressure systolic 120 mm Hg 04/08/2024 Weight 235 lbs 04/08/2024 BMI 36.8 kg/m2 04/08/2024 Encounters Encounter Location Date Provider Diagnosis [facility] [address] [place] [address] 04/08/2024 Eric Rowland Laryngopharyngeal reflux (LPR) K21.9 [...] Date Medicare [employer] 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
--- OUTSIDE RECORDS SUMMARY | 2024-05-14 09:08 | XMS_ITS ---
Author Organization [facility] Address [address] [place] [address] Care Team Providers Care Director Of Housing Name Role Phone El Venegas Primary Care [...] Problem Status W/U Status Risk Notes Problem [id number] Laryngopharyngea l reflux (LPR) (K21.9) Active confirmed Problem [id number] JOSELITO on CPAP (G47.33) Active confirmed Problem 101625773 Parkinson diseas e, symptomatic (G20.A1) Active confirmed Vital Signs Blood pressure systolic 120 mm Hg 04/08/19 25 Blood pressure diastolic 80 mm Hg 025 Height 67 in 04/08/2024 Weight 235 lbs 04/08/2024 BMI 36.8 kg/m2 04/08/2024 Encounters Encounter Location Date Provider Diagnosis [facility] [address] [place] [address] 04/08/2024 Eric Rowland Laryngopharyngeal reflux (LPR) K21.9 [...] Up: prn, Reason: Progress Notes * Juve CANDELARIA PDOB:1944 (79 yo M)Acc No.[id number]:04/08/2024 Progress Notes Patient:?Juve CANDELARIA P Provider:?Eric Rowland MD, MPH :1945???Age:79 Y???Sex:Male Wilman e:04/08/2024 Address:[address] [place], [place] [id number] Pcp:El Venegas Subjective: * Chief Complaints: * [...] tolerated the procedure well. ? * Procedure Codes:?71042 FIB L aryngoscopy, 1036F TOBACCO NON-USER * Preventive Medicine:? ??Immunizations:?Influenza Immunization?Influenza Immunization?Yes.?covid vaccinated. * Follow Up:?prn * Images: * Sign off status: Completed true * Provider:?Eric Rowland MD, MPH Da te:?04/08/2024 Generated for Soni casimiro/Jose/eTransmitting on:?05/14/2024 09:07 AM EST History and Physical Notes * [...]
--- OUTSIDE RECORDS SUMMARY | 2024-05-14 09:08 | XMS_ITS | Clinical Summary ---
Author Organization [address] Address [address] [place] [address] Phone Care Team Providers Care Urban And Regional Planner Name Role Phone Alvarez Tejada MD Primary Care Provider [phone] Allergies No known active allergies Medications fluticasone (FLONASE) 50 mcg/actuation nasal spray 1 spray by Nasal route daily. Active metFORMIN (GLUMETZA) 1000 MG (MOD) 24 hr tablet Take 1,000 mg by mouth 2 (two) times daily with breakfast and dinner. Active insulin glargine (LANTUS) 100 unit/mL vial Inject 50 Units under the skin nightly. Active propantheline (PROBANTHINE) 15 MG tablet Take 15 mg by mouth 2 times daily (0900, 1700). Active multivitamin capsule Take 1 capsule by mouth daily. Active b complex vitamins capsule Take 1 capsule by mouth daily. Active ASCORBATE CALCIUM (VITAMIN C ORAL) Take by mouth 2 times daily (0900, 1700). Active aspirin 81 MG EC tablet Take 81 mg by mouth daily. Active lisinopril (PRINIVIL,ZESTRI L) 40 MG tablet Take 20 mg by mouth daily. Active allopurinol (ZYLOPRIM) 300 MG tablet Take 300 mg by mouth daily. Active furosemide (LASIX) 40 MG tablet Take 40 mg by mouth 2 (two) times daily. Active isosorbide mononitrate (IMDUR) 60 MG 24 hr tablet Take 60 mg by mouth daily. Active blood-glucose meter (GLUCOSE MONITORING KIT) monitoring kit 1 each by Other route See Admin Instructions. Use as directed. Active insulin aspart (NOVOLOG) 100 unit/mL injection Inject 20 Units under the skin 3 (three) times daily before meals. Consult your sliding scale for dosing. Active ketoconazole (NIZORAL) 2 % shampoo Apply topically twice a week. Active clobetasol (TEMOVATE) 0.05 % cream Apply topically 2 (two) times daily. Active amLODIPine (NORVASC) 10 MG tablet Take 10 mg by mouth daily. Active nitroGLYCERIN (NITRODUR) 0.4 mg/hr transdermal patch Place 1 patch onto the skin daily. Active memantine (NAMENDA) 10 MG tablet Take 10 mg by mouth 2 (two) times daily. Active rosuvastatin (CRESTOR) 40 MG tablet Take 40 mg by mouth daily. Active DULoxetine (CYMBALTA) 30 MG capsule Take 30 mg by mouth daily. Active LITHIUM CARBONATE ORAL Take 900 mg by mouth nightly. Active clopidogrel (PLAVIX) 75 mg tablet Take 75 mg by mouth daily. Active primidone (MYSOLINE) 50 MG tablet Take 2 tablets (100 mg total) by mouth 2 (two) times daily. 120 tablet 11 6 Active Active Problems Problem Noted Date Diagnosed Date Bipolar disorder in partial remission (HC Code) (HC CODE) 06/03/2015 Parkinson disease 12/28/2014 Essential tremor 12/28/2014 Social History Tobacco Use Types Packs/Day Years Used Date Smoking Tobacco: Former Alcohol Use Standard Drinks/Week Comments Not Asked 0 (1 standard drink = 0.6 oz pur e alcohol) Sex and Gender Information Value Date Recorded Sex Assigned at Not on file Legal Sex Male 11:55 AM EDT Gender Identity Not on file Sexual Orientation Not on file Last Filed Vital Signs Vital Sign Reading Time Taken Comments Blood Pressure 143/72 05/31/2015 2:02 PM EST sta nding Pulse 60 05/31/2015 2:02 PM EST Temperature 36.8 ??C (98.3 ??F) 05/31/2015 2:02 PM ES T Respiratory Rate - - Oxygen Saturation 96% 05/31/2015 2:02 PM EST Inhaled Oxygen Concentration - - Weight 107 kg (236 lb) 05/31/2015 2:02 PM EST Height 170.2 cm (5' 7 ) 05/31/2015 2:02 PM EST Body Mass Index 36.96 05/31/2015 2:02 PM EST Plan of Treatment Health Maintenance Due Date Last Done Comments HIV screening 1959 Hepatitis C screening 1964 Tetanus adult (Td q 10,TDAP once) 1966 Lipid disorder screening 1986 Diabetes screening 1991 Shingles vaccine (Shingrix) (1 of 2 - Shingrix (RZV) 2 Dose Standard Series) 1996 Pneumococcal Vaccine (50+ ye ars) (1 of 1 - PCV) 2011 RSV Discussion (1 - 1-dose 7 5+ series) 2021 Influenza vaccine 10/24/2023 Covid-19 vaccine series ( - 2023-25 season) 2023 Meningococcal Vaccine Aged Out No ashlee radha eligible based on patient's age to complete this topic Insurance MEDICARE [id number] MEDICAID MEDICARE [id number] MEDICAID MEDICARE [id number] MEDICAID MEDICARE [id number] MEDICAID Care Teams Urban And Regional Planner Relationship Specialty Start Date End Date Alvarez Tejada MD PCP - General Internal Medicine 08/03/14
--- OUTSIDE RECORDS SUMMARY | 2024-05-14 09:08 | XMS_ITS | Clinical Summary ---
Author Organization [facility] Address [address] [place] [address] Care Team Providers Care Claims Adjudicator Name Role Phone Unavailable Primary Care Provider [...]
--- OUTSIDE RECORDS SUMMARY | 2024-05-14 09:08 | XMS_ITS ---
Author Organization [facility] Address [address] [place] [address] Care Team Providers Care Envelope Folding Machine Adjuster Name Role Phone El Venegas Primary Care Provider U arianna Rowland MD,MPH, Eric Miguel [phone] REASON FOR VISIT throat irritation Encounters Encounter Location Date Provider Diagnosis [facility] [address] [place] [address] 03/10/2024 Eric Rowland Plan Of Treatment No Information Progress Notes * Juve CANDELARIA PDOB:1944 (79 yo M)Acc No.[id number]:03/10/2024 Progress Notes Patient:?Juve CANDELARIA Provider:?Eric Rowland MD, MPH :1945???Age:78 Y???Sex:Male Wilman e:03/10/2024 Address:[address] [place], [place] [address] Pcp:El Venegas Subjective: * Chief Complaints: * ???1. Throat irritation. * Medical History:? Objective: * Vitals:? * Physical Examination:? Assessment: Plan: * Treatment: * Images: * Electronic signature of Robbie Rowland MD,MPH, MD, MPH on 05/14/2024 at 09:08 AM EST Sign off status: Pending * Provider:?Eric Rowland MD, MPH Da te:?03/10/2024 Generated for Printi ng/Fajagg/eTransmitting on:?05/14/2024 09:08 AM EST
== END 2024-05-14 09:18 | disposition home or self-care (01) ==
PROVIDERS: PCP Internal Medicine; Visit Provider Urology
DX: N40.1 Benign prostatic hyperplasia with lower urinary tract symptoms (principal); N28.1 Cyst of kidney, acquired; Z13.9 Encounter for screening, unspecified
CPT/HCPCS: 99213

== ENCOUNTER → 2024-05-14 08:42 | Outpatient (BNVA) | payer MEDICARE, MEDICAID, SELFPAY | PROVIDERS: PCP Internal Medicine; Visit Provider Urology | DX: N40.1 Benign prostatic hyperplasia with lower urinary tract symptoms (principal); N28.1 Cyst of kidney, acquired | CPT/HCPCS: 51798; 81003; 99212 ==

== ENCOUNTER 2024-10-15 09:51 | Outpatient (REF) | payer MEDICARE, MEDICAID, SELFPAY ==
--- OUTSIDE RECORDS SUMMARY | 2024-10-15 10:33 | XMS_ITS | Patient Health Record ---
Author Organization [facility] Address [address] [place] [address] Care Team Providers Care Grated Cheese Maker Name Role Phone El Venegas Primary Care Provider U arianna Rowland MD,MPH, Ericko Miguel Allergies Allergen (clinical drug ingredient) Drug/Non [...] Problem Status W/U Status Risk Notes Problem [id number] JOSELITO on CPAP (G47.33) Active confirmed Problem 326091339 Laryngopharyngea l reflux (LPR) (K21.9) Active confirmed Problem 662616610 Parkinson diseas e, symptomatic (G20.A1) Active confirmed Vital Signs Blood pressure diastolic 80 mm Hg 04/08/2024 Height 67 in 04/08/2024 Blood pressure systolic 120 mm Hg 04/08/2024 Weight 235 lbs 04/08/2024 BMI 36.8 kg/m2 04/08/2024 Encounters Encounter Location Date Provider Diagnosis [facility] [address] [place] [address] 04/08/2024 Eric Rowland Laryngopharyngeal reflux (LPR) K21.9 [...] Date Medicare [employer] [address] [facility] [place], [place] [id number] Juve Candelaria Self - patient is the insured [facility] [address] [place] [address] [phone] [id number] Juve Candelaria Self - patient is the insured Medical (General) History Medical History History ICD Code diabetes hypertension high cholesterol parkinson's Surgical History Surgery Date(Month/Year) cancer removal on nose pace maker 4 vessel CABG 02/2023
--- OUTSIDE RECORDS SUMMARY | 2024-10-15 10:33 | XMS_ITS | Encounter Summary ---
Author Organization [facility] Address [address] [place] [address] Phone Care Team Providers Care Collateral Clerk Name Role Phone Felicity Howell MD Primary Care Provider Encounter Details Date Type Department Care Team (Late st Contact Info) Description 01/13/2020 Procedure Pass OR Admitting Dept - Virtual Department [address] [place] [id number] Social History Tobacco Use Types Packs/Day Years Used Date Smoking Tobacco: Never Smokeless Tobacco: Never Alcohol Use Standard Drinks/Week Comments No 0 (1 standard drink = 0.6 oz pur e alcohol) Sex and Gender Information Value Date Recorded Sex Assigned at Not on file Legal Sex Male 2:32 AM EDT Gender Identity Not on file Sexual Orientation Not on file documented as of this encounter Plan of Treatment Not on file documented as of this encounter Visit Diagnoses Not on filedocumented in this encounter Care Teams Collateral Clerk Relationship Specialty Start Date End Date Felicity Howell MD PCP - General Internal Medicine 10/07/15 documented as of this encounter Additional Source Comments The information contained in this document represents components of the legal health record. It is not the complete legal health record.[facility]
--- OUTSIDE RECORDS SUMMARY | 2024-10-15 10:33 | XMS_ITS ---
Author Name [facility] Organization Unknown Care Team Organization Name Specialty Phone Email Start Date End Da te [facility] Ericka Arredondo Primary Care 01/30/2022 [facility] NO PCP Primary Care
--- OUTSIDE RECORDS SUMMARY | 2024-10-15 10:34 | XMS_ITS | Clinical Summary ---
Author Organization [facility] Address [address] [place] [address] Care Team Providers Care Flying Instructor Name Role Phone Unavailable Primary Care Provider [...]
--- OUTSIDE RECORDS SUMMARY | 2024-10-15 10:34 | XMS_ITS | Clinical Summary ---
Author Organization [address] Address [address] [place] [address] Phone Care Team Providers Care Configuration Management Consultant Name Role Phone Alvarez Tejada MD Primary Care Provider [phone] Allergies No known active allergies Medications fluticasone [...] Bipolar disorder in partial remission (HC Code) 06/03/2015 Parkinson disease (HC Code) 12/28/2014 Essential tremor 12/28/2014 Social History Tobacco [...] 60 05/31/2015 2:02 PM EST Temperature 36.8 C (98.3 F) 05/31/2015 2:02 PM EST Respiratory Rate - - Oxygen Saturation 96% [...] Lipid disorder screening 1986 Diabetes screening 1991 Pneumococcal Vaccine (50+ ye ars) (1 of 1 - PCV) 1996 Shingles vaccine (Shingrix) (1 of 2 - Shingrix (RZV) 2 Dose Standard Series) 1996 RSV Immunization (1 - 1-dose 75+ series) 2021 Covid-19 vaccine series ( - 2023- season) 2023 Influenza vaccine 11/23/2024 Colon cancer screening, Colonoscopy Discontinued Meningococcal Vaccine Aged Out No ashlee radha eligible based on patient's age to complete this topic Insurance MEDICARE [id number] MEDICAID MEDICARE [id number] MEDICAID MEDICARE [id number] MEDICAID MEDICARE [id number] MEDICAID Care Teams Configuration Management Consultant Relationship Specialty Start Date End Date Alvarez Tejada MD PCP - General Internal Medicine 08/03/14
--- NOTE | 2024-10-15 10:47 | MHC.AU.HA3 ---
Hearing Instrument Follow-Up- Binaural Date of Visit: 10/15/24 Right Ear: Luis, Model, Color, Serial Number: Emery Davis [id number] SN: [id number] Color: Velvet black Ginner Repair Warranty: 06/25/2025 Ginner Loss and Damage Warranty: 06/25/2025 [facility] Service Plan: 04/25/2023 Battery Size: Rechargeable Earmold/Dome/CShell/SlimTip:Microsonic M35 canal shell Dispensed By: [facility] Date of Fittin04/25/2022 Left Ear: Luis, Model, Color, Serial Number: Emery Davis [id number] SN: [id number] Color: Velvet black Ginner Repair Warranty: 06/25/2025 Ginner Loss and Damage Warranty: 06/25/2025 [facility] Service Plan: 04/25/2023 Battery Size: Rechargeable Earmold/Dome/CShell/SlimTip: Microsonic M35 canal shell Dispensed By: [facility] Date of Fittin04/25/2022 Follow-Up Summary: Seen for hearing aid problem, accompanied by . His reports that he is not hearing well with hearing aids in or out. Notes hearing aids aren't sitting right on his ears. Found tubes hardened, tone hooks spinning on threads. Cleaned hearing aids (2), cleaned earmolds (2), re-tubed earmolds (2), [place] [id number] units. Listening check positive. Juve reports improvement. Recommendations: Recommendations: Hearing instrument maintenance in 6 months, or sooner if needed. Diagnosis Code(s): Primary Diagnosis: H90.3 Bilateral Sensorineural Hearing Loss Signature: Provider: Christiano Contreras, CCC-A
== END 2024-10-15 09:52 | disposition home or self-care (01) ==
LOC: HO.HAP 09:51
PROVIDERS: Visit Provider Internal Medicine
DX: Z46.1 Encounter for fitting and adjustment of hearing aid (principal); H90.3 Sensorineural hearing loss, bilateral
CPT/HCPCS: 92593; 99499

== ENCOUNTER 2024-10-30 08:23 | Outpatient (AMB) | payer MEDICARE, MEDICAID, SELFPAY ==
--- NOTE | 2024-10-30 08:27 | MHC.OFFVIS ---
Intake Visit Reasons: 6m/PVR Intake Note: Patient is present for 6M Urology Medication:TAMSULOSIN,ALLOPURINOL, Antibiotic Allergy:NONE Blood Thinner:ASPIRIN Todays PVR: 0MLS Cytologist Required: No Accompanied by: Spouse Allergies bupropion (From WELLBUTRIN) Allergy (Severe, Verified 10/30/24 08:45) Hallucinations HPI Comments Details: ?Juve is a pleasant male. He is a patient of Dr. Ga. He is seen for the following urologic conditions - lower urinary tract symptoms - complex renal cyst Six-month follow-up Accompanied by his PVR 0 cc Continues with tamsulosin Has urinary control Son has completed radiation for recurrent prostate cancer 12 month follow-up renal ultrasound Lower urinary tract symptoms Primary issue of nocturia x2 Also with weakness of stream Background of Parkinson's disease and diabetes Current therapeutic - doxazosin 4 mg - did not take - failed prior use of tamsulosin Went back on tamsulosin PSA 12/14 1.0 Continue with use of urinal in order to reduce accidents Renal cyst with nephrolithiasis Prior CT scan in emergency room with stone at [facility] - ultrasound 1 cm right lower pole, small possible neoplasm - 12/13 CT scan 1 cm calyceal renal stone, bilateral simple cyst, no evidence of neoplasm - 01/13 renal ultrasound 1 cm right stone, bilateral cysts up to 5 cm on left side Patient and based on prior discussions have agreed for surveillance [facility] Medical History (Updated 04/22/24 @ 19:28 by Chaim Pastrana MD) Restless leg syndrome Dyspnea Insomnia Bipolar 1 disorder Diabetes mellitus, type II Kidney cysts Chronic rhinitis Renal stones Benign prostatic hyperplasia with lower urinary tract symptoms Parkinson disease JOSELITO on CPAP Surgical History History of surgery Family History Father No problems noted. Mother No problems noted. Social History Patient Tobacco Use Status: Former Tobacco user Tobacco use type: Cigarette Years Smoked: 30 years Review of Systems Const Denies chills and Denies fever(s) Card Reports no additional complaints and Denies syncope Resp Denies cough GI Denies abdominal pain and Denies heartburn Reports as per HPI and Denies change in libido Neuro Denies syncope Psych Denies change in libido Endo Denies change in libido Physical Exam Const General: cooperative, healthy appearing, comfortable and no acute distress Orientation/consciousness: patient oriented x3 HEENT Face and sinus: Yes normal facial exam Mouth: moist mucous membranes Neck Neck: Yes normal visual inspection, Yes full ROM and Yes trachea midline Chest Chest palpation & inspection: normal inspection of the chest Resp Effort & Inspection: normal respiratory effort, able to speak in complete sentences and no respiratory distress GI Inspection: Yes normal to inspection Back/Spine/Pelvis Cervical Spine: normal cervical lordosis Thoracic/Lumbar Spine: thoracic and lumbar spine normal to inspection Skin General skin exam: no rashes or lesions noted Neuro General: patient oriented x3, gait normal, tone normal and moves all extremities Extrem General: Yes normal to inspection and Yes capillary refill normal Assessment & Plan Assessment & Plan (1) Renal stones: Code(s): N20.0 - Calculus of kidney Category: Medical (2) Complex renal cyst: Code(s): N28.1 - Cyst of kidney, acquired Category: Medical (3) Lower urinary tract symptoms due to benign prostatic hyperplasia: Code(s): N40.1 - Benign prostatic hyperplasia with lower urinary tract symptoms Category: Medical Plan Twelve month follow-up renal ultrasound Orders: Orders US renal BI 12 Months N20.0 - Calculus of kidney Medications: Refilled tamsulosin 0.4 mg PO BEDTIME 90 caps 3RF 90 days N40.1 - Benign prostatic hyperplasia with lower urinary tract symptoms Patient Instructions: This note is constructed using voice recognition software. While every effort has been made to ensure accuracy director of content marketing errors may have been included. Imaging studies, laboratory and physical exam results were discussed and reviewed in detail. No major barriers to patient understanding were identified. An opportunity to ask questions regarding the treatment plan was provided. All questions were answered. The patient expressed understanding and agreement with the above treatment plan. The patient is aware they should contact our office by phone for worsening of their current condition or the appearance of new urologic symptoms. Compliance is encouraged with any medications and followup testing that is ordered. It is a privilege to participate in the urologic care of your patient. If you have any questions or concerns regarding treatment for the above conditions, or other urologic issues, please do not hesitate to contact me. The office telephone contact is [phone]. Sincerely, Dr Vladimir Doyle MD, ER[facility] - Urology Compassionate Specialist Care for the Genitourinary System Coding Level of Care Code Est Pt Level 3 (89402) Complex EM visit Add On G2211 Diagnoses Renal stones N20.0 Complex renal cyst N28.1 Lower urinary tract symptoms due to benign prostatic hyperplasia N40.1
--- OUTSIDE RECORDS SUMMARY | 2024-10-30 08:33 | XMS_ITS | Encounter Summary ---
Author Organization [facility] Address [address] [place] [address] Phone Care Team Providers Care Field Staff Name Role Phone Felicity Howell MD Primary Care Provider El Venegas MD Primary Care Provide r Encounter Details Date Type Department Care Team (Late st Contact Info) Description 12/10/2023 Telephone [facility] Department of Neurology [address] [place] [address], [address] Floor, [address] [place] [address] Jesse Humphrey MD [address] [place] [address] [email or web address] Social History Tobacco Use Types Packs/Day Years Used Date Smoking Tobacco: Never Smokeless Tobacco: Never Alcohol Use Standard Drinks/Week Comments No 0 (1 standard drink = 0.6 oz pur e alcohol) Education Answer Date Recorded Are you interested in more education? Not on isma e 07/20/2022 Are you concerned about learning? Not on file 07/20/2022 No 07/20/2022 No 07/20/2022 Digital Access Answer Date Recorded No 08/20/2022 No 08/20/2022 Reliable internet access at home? Not on file 08/20/2022 Device with a working camera? Not on file Sex and Gender Information Value Date Recorded Sex Assigned at Not on file Legal Sex Male 2:32 AM EDT Gender Identity Not on file Sexual Orientation Not on file documented as of this encounter Progress Notes * Manny Lackey - 12/10/2023 3:31 PM EDT Patients calling looking to have referral made for [facility] for Fall Prevention Program following string of recent falls. Phone ([facility]) [phone] Fax ([facility]) [phone] documented in this encounter Plan of Treatment Upcoming Encounters Date Type Department Care Team (Late st Contact Info) Description 12/17/2024 2:30 PM EDT Office Visit [facility] Department of Neurology [address] [place] [address], [address] Floor, [address] [place] [address] Jesse Humphrey MD [address] [place] [address] [email or web address] documented as of this encounter Visit Diagnoses Diagnosis Parkinson's disease without dyskinesia or fluctuating manifestations- Primary documented in this encounter Care Teams Field Staff Relationship Specialty Start Date End Date Felicity Howell MD PCP - General Internal Medicine 10/07/15 10/25/24 El Venegas MD [address] [place] [address] PCP - General Internal Medicine 10/26/24 documented as of this encounter Additional Source Comments The information contained in this document represents components of the legal health record. It is not the complete legal health record.[facility]
--- OUTSIDE RECORDS SUMMARY | 2024-10-30 08:34 | XMS_ITS | Patient Health Record ---
Author Organization [facility] Address [address] [place] [address] Care Team Providers Care Stroke Coordinator Name Role Phone El Venegas Primary Care [...] tablet Orally Once a day with evening meal; Duration: 90 days 04/08/2024 07/02/2025 Active Allopurinol 300 [...] Problem Status W/U Status Risk Notes Problem Obstructive sleep apnea syndrome (19392850) JOSELITO on CPAP (G47.33) Active confirmed Problem Laryngopharyngeal reflux (634467126) Laryngopharyngeal reflux (LPR) (K21.9) Active confirmed Problem Parkinson's disease (disorder) (17938310) Parkinson disease, symptomatic (G20.A1) Active confirmed Vital Signs Blood pressure diastolic 80 mm Hg 04/08/2024 Height 67 in 04/08/2024 Blood pressure systolic 120 mm Hg 04/08/2024 Weight 235 lbs 04/08/2024 BMI 36.8 kg/m2 04/08/2024 Encounters Encounter Location Date Provider Diagnosis [facility] [address] [facility] 4[address] [place] [address] 04/08/2024 Eric Rowland Laryngopharyngeal reflux (LPR) K21.9 [...] Start Date Coverage End Date Medicare [employer], [employer]jit [address] [facility] [place] [id number] Jose Francisco Candelariaur Self - patient is the insured [facility] [address] [place] [address] [id number] 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
--- OUTSIDE RECORDS SUMMARY | 2024-10-30 08:34 | XMS_ITS | Clinical Summary ---
Author Organization [facility] Address [address] [place] [address] Care Team Providers Care Guitar Maker Hand Name Role Phone Unavailable Primary Care Provider [...]
--- OUTSIDE RECORDS SUMMARY | 2024-10-30 08:34 | XMS_ITS | Clinical Summary ---
Author Organization [address] Address [address] [place] [phone] Phone Care Team Providers Care Chiller Technician Name Role Phone Alvarez Tejada MD Primary Care Provider [phone] Allergies No known active allergies Medications fluticasone [...] age to complete this topic Insurance MEDICARE [id number] MEDICAID MEDICARE [id number] MEDICAID MEDICARE [id number] MEDICAID MEDICARE [id number] MEDICAID Care Teams Chiller Technician Relationship Specialty Start Date End Date Alvarez Tejada MD PCP - General Internal Medicine 08/03/14
== END 2024-10-30 09:00 | disposition home or self-care (01) ==
LOC: HO.HUSH 08:24
PROVIDERS: PCP Internal Medicine; Visit Provider Urology
DX: N20.0 Calculus of kidney (principal); N28.1 Cyst of kidney, acquired; N40.1 Benign prostatic hyperplasia with lower urinary tract symptoms
CPT/HCPCS: 99213; G2211

== ENCOUNTER 2024-10-30 08:23 | Outpatient (REF) | payer MEDICARE, MEDICAID, SELFPAY | END 2024-10-30 08:24 | disposition home or self-care (01) | LOC: HO.LAB 08:23 | PROVIDERS: PCP Internal Medicine; Visit Provider Urology | DX: N40.1 Benign prostatic hyperplasia with lower urinary tract symptoms (principal); N20.0 Calculus of kidney; N28.1 Cyst of kidney, acquired; N39.0 Urinary tract infection, site not specified; R35.0 Frequency of micturition; R97.20 Elevated prostate specific antigen [PSA]; R39.12 Poor urinary stream | CPT/HCPCS: 81003; 87086; 87088; 87186; 99212 ==

== ENCOUNTER 2024-11-11 13:07 | Outpatient (REF) | payer MEDICARE, MEDICAID, SELFPAY ==
--- OUTSIDE RECORDS SUMMARY | 2024-11-11 14:01 | XMS_ITS | Encounter Summary ---
Author Organization [facility] Address [address] [place] [address] Phone Care Team Providers Care Shot Peen Operator Name Role Phone Felicity Howell MD Primary Care Provider El Venegas MD Primary Care Provide r Encounter Details Date Type Department Care Team (Late st Contact Info) Description 12/10/2023 Telephone [facility] Department of Neurology [address] [place] [address], 8th Floor, [address] [place] [address] Jesse Humphrey MD [address] [place] [address] [email or web address] Social History Tobacco Use Types Packs/Day [...] calling looking to have referral made for [facility] for Fall Prevention Program following string of recent falls. Phone ([facility]) [phone] Fax ([facility]) [phone] documented in this encounter Plan of Treatment Upcoming Encounters Date Type Department Care Team (Late st Contact Info) Description 12/17/2024 2:30 PM EDT Office Visit [facility] Department of Neurology [address] [place] [address], 8th Floor, [address] [place] [address] Jesse Humphrey MD [address] [place] [address] [email or web address] documented as of this encounter Visit Diagnoses Diagnosis Parkinson's disease without dyskinesia or fluctuating manifestations- Primary documented in this encounter Care Teams Shot Peen Operator Relationship Specialty Start Date End Date Felicity oHwell MD PCP - General Internal Medicine 10/07/15 10/25/24 El Venegas MD [address] [place] [address] PCP - General Internal Medicine 10/26/24 documented as of this encounter Additional Source Comments The information contained in this document represents components of the legal health record. It is not the complete legal health record.[facility]
--- OUTSIDE RECORDS SUMMARY | 2024-11-11 14:01 | XMS_ITS | Clinical Summary ---
Author Organization [facility] Address [address] [place] [address] Care Team Providers Care Floor Care Specialist Name Role Phone Unavailable Primary Care Provider [...]
--- OUTSIDE RECORDS SUMMARY | 2024-11-11 14:01 | XMS_ITS | Patient Health Record ---
Author Organization [facility] Address [address] [place] [address] Care Team Providers Care Production Crew Supervisor Name Role Phone El Venegas Primary Care [...] Risk Notes Problem Obstructive sleep apnea syndrome (91546564) JOSELITO on CPAP (G47.33) Active confirmed Problem Laryngopharyngeal reflux (401283292) Laryngopharyngeal reflux (LPR) (K21.9) Active confirmed Problem Parkinson's disease (disorder) (61736440) Parkinson disease, symptomatic (G20.A1) Active confirmed Vital Signs Blood pressure diastolic 80 mm Hg 04/08/2024 Height 67 in 04/08/2024 Blood pressure systolic 120 mm Hg 04/08/2024 Weight 235 lbs 04/08/2024 BMI 36.8 kg/m2 04/08/2024 Encounters Encounter Location Date Provider Diagnosis [facility] [address] [facility] [address] [place] [address] 04/08/2024 rEic Rowland Laryngopharyngeal reflux (LPR) K21.9 ; JOSELITO [...] Date Medicare NGS[employer]Manjit [address] [facility] [place] [id number] Jose Francisco Candelariaur Self - patient is the insured [facility] [address] [place] [id number] 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
--- OUTSIDE RECORDS SUMMARY | 2024-11-11 14:01 | XMS_ITS | Clinical Summary ---
Author Organization [address] Address [address] [place] [address] Phone Care Team Providers Care Video Game Repair Technician Name Role Phone Alvarez Tejada MD Primary Care Provider [phone] Allergies No known active allergies Medications fluticasone [...] age to complete this topic Insurance MEDICARE [id number] MEDICAID MEDICARE [id number] MEDICAID MEDICARE [id number] MEDICAID MEDICARE [id number] MEDICAID Care Teams Video Game Repair Technician Relationship Specialty Start Date End Date Alvarez Tejada MD PCP - General Internal Medicine 08/03/14
[2024-11-11 17:32] LABS: Appearance Urine Clear; Glucose Urine UA Negative (Negative); PH 5.5 (5.0-9.0); Specific Gravity - Urine 1.010 (1.005-1.025); UMIC TRIGGER UACC YES
== END 2024-11-11 13:08 | disposition home or self-care (01) ==
LOC: HO.WFDLDS 13:07
PROVIDERS: Visit Provider Nurse Practitioner Family
DX: N40.1 Benign prostatic hyperplasia with lower urinary tract symptoms (principal)
CPT/HCPCS: 81001

== ENCOUNTER 2024-12-29 07:52 | Outpatient (AMB) | payer MEDICARE, MEDICAID, SELFPAY ==
--- OUTSIDE RECORDS SUMMARY | 2024-03-10 07:45 | XMS_ITS ---
Author Organization [facility] Address [address] [place] [address] Care Team Providers Care Head Setter Name Role Phone El Venegas Primary Care Provider Raúl Rowland MD,MPH, Eric Myriam REASON FOR VISIT throat irritation Encounters Encounter Location Date Provider Diagnosis [address] [address] 03/10/2024 Eric Rowland Plan Of Treatment No Information Progress Notes * Juve CANDELARIA PDOB:1944 (79 yo M)Acc No.[id number]:03/10/2024 Progress Notes Patient: Juve LICEA Provider: Tiffanie Rowland MD, MPH :1945 A ge:78 Y S ex:Male Date:03/10/2024 Address:[address] [place] [id number] Pcp:El Venegas Subjective: * Chief Complaints: * 1 . Throat irritation. * Medical History: Objective: * Vitals: * Physical Examination: Assessment: Plan: * Treatment: * Images: * Electronic signature of Robbie Rowland MD,MPH, MD, MPH on 12/29/2024 at 07:58 AM EDT Sign off status: Pending * Provider: Tiffanie Rowland MD, MPH Date: 05/11/2023 Generated for Printi ng/Fashakir/eTransmitting on: 07:58 AM EDT
--- OUTSIDE RECORDS SUMMARY | 2024-12-29 07:58 | XMS_ITS | Patient Health Record ---
Author Organization [facility] Address [address] [place] [address] Care Team Providers Care Date Night Caregiver Name Role Phone El Venegas Primary Care [...] Risk Notes Problem Obstructive sleep apnea syndrome (60238557) JOSELIOT on CPAP (G47.33) Active confirmed Problem Laryngopharyngeal reflux (874905847) Laryngopharyngeal reflux (LPR) (K21.9) Active confirmed Problem Parkinson's disease (disorder) (74731153) Parkinson disease, symptomatic (G20.A1) Active confirmed Vital Signs Blood pressure diastolic 80 mm Hg 04/08/2024 Height 67 in 04/08/2024 Blood pressure systolic 120 mm Hg 04/08/2024 Weight 235 lbs 04/08/2024 BMI 36.8 kg/m2 04/08/2024 Encounters Encounter Location Date Provider Diagnosis [facility] [address] [facility] 4TH [place] [address] 04/08/2024 Eric Rowland Laryngopharyngeal reflux (LPR) K21.9 [...] Date Medicare NGS, [employer]Manjit [address] [facility] [place] [id number] Jose Francisco Candelariaur Self - patient is the insured [facility] [address] [place] [id number] 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
--- OUTSIDE RECORDS SUMMARY | 2024-12-29 07:58 | XMS_ITS | Clinical Summary ---
Author Organization [address] Address [address] [place] [phone] Phone Care Team Providers Care Crime Specialist Name Role Phone Alvarez Tejada MD Primary Care Provider [phone] Allergies No known active allergies Medications fluticasone [...] Diagnosed Date Bipolar disorder in partial remission 06/03/2015 Parkinson disease (HC Code) 12/28/2014 Essential [...] Immunization (1 - 1-dose 75+ series) 2021 Influenza vaccine 10/23/2024 Covid-19 vaccine series (1 - 2023- season) 2024 Colon cancer screening, Colonoscopy Discontinued Meningococcal B Vaccine Aged Out No l onger eligible based on patient's age to complete this topic Meningococcal Vaccine Aged Out No ashlee radha eligible based on patient's age to complete this topic Insurance MEDICARE [id number] MEDICAID MEDICARE [id number] MEDICAID MEDICARE [id number] MEDICAID MEDICARE [id number] MEDICAID Care Teams Crime Specialist Relationship Specialty Start Date End Date Alvarez Tejada MD PCP - General Internal Medicine 08/03/14
--- OUTSIDE RECORDS SUMMARY | 2024-12-29 07:58 | XMS_ITS | Encounter Summary ---
Author Organization [facility] Address [address] [place] [address] Phone Care Team Providers Care Fur Stylist Name Role Phone Felicity Howell MD Primary Care Provider El Venegas MD Primary Care Provide r Encounter Details Date Type Department Care Team (Late st Contact Info) Description 12/10/2023 Telephone [facility] Department of Neurology [address] [facility], 8th Floor, [address] [place] [address] Jesse Humphrey MD [address] [place], [place] [phone] [place] [address] [email or web address] Social History Tobacco Use Types Packs/Day Years [...] calling looking to have referral made for [facility] for Fall Prevention Program following string of recent falls. Phone ([facility]) [phone] Fax ([facility]) [phone] documented in this encounter Plan of Treatment Not on file documented as of this encounter Visit Diagnoses Diagnosis Parkinson's disease without dyskinesia or fluctuating manifestations- Primary documented in this encounter Care Teams Fur Stylist Relationship Specialty Start Date End Date Felicity Howell MD PCP - General Internal Medicine 10/07/15 10/25/24 El Venegas MD [address] [address] PCP - General Internal Medicine 10/26/24 documented as of this encounter Additional Source Comments The information contained in this document represents components of the legal health record. It is not the complete legal health record.[facility]
--- OUTSIDE RECORDS SUMMARY | 2024-12-29 07:58 | XMS_ITS | Encounter Summary ---
Author Organization [facility] Address [address] [place] [address] [place] [address] Phone Care Team Providers Care Doctor Of Naturopathic Medicine Name Role Phone Felicity Howell MD Primary Care Provider El Venegas MD Primary Care Provide r Reason for Referral * Consultation (Elective) - Closed Specialty Diagnoses / Procedures Referred By Contpawan t Referred To Contact Neurology Diagnoses Parkinson disease Essential and other specified forms of tremor Adolfo Mckee MD Phone: tel: fax: Referral ID Status Reason Start Date Expiration Date Visits Re quested Visits Authorized [id number] Closed 11/01/2015 10/31/2016 1 1 Encounter Details Date Type Department Care Team (Latest Contact Info) Description 11/01/2015 Transcribe Orders [facility] Department of Neurology [address] [facility], 8th Floor, [address] [place] [address] Adolfo Mckee MD [address] [place] [address] Parkinson disease (Primary Dx); Essential and other specified forms of tremor Social History Tobacco Use Types Packs/Day Years Used Date Smoking Tobacco: Never Assessed Sex and Gender Information Value Date Recorded Sex Assigned at Not on file Legal Sex Male 2:32 AM EDT Gender Identity Not on file Sexual Orientation Not on file documented as of this encounter Plan of Treatment Scheduled Referrals Name Type Priority Associated Diagnoses Order Schedule Ambulatory referral to [facility] Neurology Outpatient Referral Routine Parkinson disease Essential and other specified forms of tremor Ordered: 11/01/2015 documented as of this encounter Visit Diagnoses Diagnosis Parkinson disease- Primary Paralysis agitans Essential and other specified forms of tremor documented in this encounter Care Teams Doctor Of Naturopathic Medicine Relationship Specialty Start Date End Date Felicity Howell MD PCP - General Internal Medicine 10/07/15 10/25/24 El Venegas MD [address] [place] [address] PCP - General Internal Medicine 10/26/24 documented as of this encounter Additional Source Comments The information contained in this document represents components of the legal health record. It is not the complete legal health record.[facility]
--- OUTSIDE RECORDS SUMMARY | 2024-12-29 07:58 | XMS_ITS | Encounter Summary ---
Author Organization [facility] Address [address] [place] [address] Phone Care Team Providers Care Route Aide Name Role Phone Felicity Howell MD Primary Care Provider [phone] El Venegas MD Primary Care Provide r Encounter Details Date Type Department Care Team (Late st Contact Info) Description 01/13/2020 Procedure Pass OR Admitting Dept - Virtual Department [address] [place] [address] Social History Tobacco Use Types Packs/Day Years [...] on filedocumented in this encounter Care Teams Route Aide Relationship Specialty Start Date End Date Feliciyt Howell MD PCP - General Internal Medicine 10/07/15 10/25/24 El Venegas MD [address] [place] [address] PCP - General Internal Medicine 10/26/24 documented as of this encounter Additional Source Comments The information contained in this document represents components of the legal health record. It is not the complete legal health record.[facility]
--- OUTSIDE RECORDS SUMMARY | 2024-12-29 07:58 | XMS_ITS | Clinical Summary ---
Author Organization [facility] Address [address] [place] [address] Care Team Providers Care Wire Drawing Die Maker Name Role Phone Unavailable Primary Care Provider [...]
--- OUTSIDE RECORDS SUMMARY | 2024-12-29 07:58 | XMS_ITS | Clinical Summary ---
Author Organization [facility] Address [address] [place] [id number] Phone Care Team Providers Care Rice Drier Name Role Phone El Venegas MD Primary Care Provide r Allergies Active Allergy Reactions Criticality Noted Date Comments Bupropion 09/11/2016 Other reaction(s): OTHER Loss of faculties and incontinence Other reaction(s): OTHER, Other (see comments) Loss of faculties and incontinence Patient says he becomes confused and urinates on himself Bupropion Hcl 04/16/2017 Other reaction(s): Other (see comments) Patient says he becomes confused and urinates on himself Haloperidol 03/26/2023 Risk of neuroleptic malignant syndrome, irreversible worsening of parkinsonism, and from strong D2R antagonists. Please avoid. Wellbutrin (Bupropion Hcl) 6 Medications amLODIPine (NORVASC) 10 MG tablet 6 Active ascorbic acid, vitamin C, (VITAMIN C) 1000 MG tablet Take 500 mg by mouth daily. Active blood glucose control high,low (FREESTYLE CONTROL) Soln 1 Drop by In Vitro route See Admin Instructions. Use with every new bottle of strips 4 Active cholecalciferol (VITAMIN D3) 2,000 unit capsule Take by mouth daily. Takes 2 capsules 6 Active clopidogrel (PLAVIX) 75 mg tablet 6 Active fluticasone propionate (FLONASE) 50 mcg/actuation nasal spray 2 sprays by Nasal route as needed. 5 Active insulin aspart (NOVOLOG FLEXPEN) 100 unit/mL InPn injection pen 3 (three) times a day with meals. Takes 27 units in the Am, 20 units at noon time, 20 units at Pm,Follow a sliding scale 6 Active magnesium oxide (MAG-OX) 400 mg (240 mg elemental) tablet Take 500 mg by mouth every evening. Active nitroglycerin (NITROSTAT) 0.[address] 0.4 mg under the tongue every 5 minutes as needed. Active omega 3-yxv-zfi-fish oil 1,200 (144-216) mg Cap Take 1 Tab by mouth daily. Active allopurinol (ZYLOPRIM) 300 MG tablet Take 300 mg by mouth daily. Active melatonin 3 mg Tab Take 3 mg by mouth nightly at bedtime. Active metoprolol succinate (TOPROL-XL) 25 MG 24 hr tablet Take 25 mg by mouth daily. Take 0.5 mg (12.50 mg total 0) by mouth daily Active amoxicillin (AMOXIL) 500 MG capsule DIRECTED TAKE 4 CAPS 1 HR PRIOR DENTAL APPT 1 8 Active lisinopril (PRINIVIL,ZESTRI L) 20 MG tablet Take 20 mg by mouth daily. 3 8 Active sertraline (ZOLOFT) 50 MG tablet Take 50 mg by mouth daily. 1 8 Active aspirin 81 MG EC tablet Take 81 mg by mouth daily. 7 Active multivitamin (DAILY-LADY) per tablet TAKE 1 TAB BY MOUTH DAILY. 7 Active furosemide (LASIX) 80 MG tablet Take 40 mg by mouth 2 (two) times a day. Active CALCIUM 600 WITH VITAMIN D3 600 mg(1,500mg) -400 unit per chew tablet Take 2 tablets by mouth daily. 1 8 Active doxycycline monohydrate (ADOXA) 100 MG tablet 2 8 Active insulin degludec (TRESIBA FLEXTOUCH U-100) 100 unit/mL (3 mL) InPn Inject 45 Units under the skin 2 (two) times a day. 8 Active metroNIDAZOLE (METROCREAM) 0.75 % cream 5 8 Active rosuvastatin (CRESTOR) 40 MG tablet Take 40 mg by mouth daily. 0 Active rosuvastatin (CRESTOR) 40 MG tablet Take 40 mg by mouth. 0 Active sertraline (ZOLOFT) 100 MG tablet Take 100 mg by mouth daily. 0 Active oxyCODONE 5 MG immediate release tablet Take 1 tablet (5 mg total) by mouth every 4 (four) hours as needed for moderate pain. 20 tablet 0 Active Additional Information Patient not taking.Reported on 04/20/2020 FREESTYLE LANCETS [facility] [place] BLOOD [place]GAR THREE TIMES DAILY. DX E11.29 0 Active dulaglutide (TRULICITY) 3 mg/0.5 mL subcutaneous injection Inject 3 mg under the skin every 7 days. 1 Active TRULICITY 3 mg/0.5 mL subcutaneous injection 3 mg. 1 Active cetirizine (ZYRTEC) 10 MG tablet take 1 tablet by mouth everyday at bedtime 90 tablet 3 4 Active traZODone (DESYREL) 50 MG tablet TAKE 1.5 TABLET BY MOUTH DAILY AT BEDTIME FOR 90 DAYS 4 Active donepeziL (ARICEPT) 5 MG tablet TAKE 1 TABLET BY MOUTH EVERY EVENING 90 tablet 3 5 Active carbidopa-levodo pa (SINEMET) 25-100 mg per tablet TAKE 1 TABLET BY MOUTH 8 (EIGHT) TIMES A DAY 720 tablet 5 5 Active atorvastatin (LIPITOR) 40 MG tablet Take 40 mg by mouth nightly at bedtime. Active Active Problems Problem Noted Date Diagnosed Date Primary osteoarthritis of right knee 04/20/2020 S/P total knee replacement, left 04/20/2020 Sacroiliitis 04/20/2020 Morbid obesity with BMI of 40.0-44.9, adult 03/26 Gait instability 04/20/2020 Osteoarthritis of spine with radiculopathy, thoracolumbar region 04/20/2020 Spondylolisthesis at L4-L5 level 04/20/2020 Spondylolisthesis of thoracolumbar region 2020 Hypertension 12/25/2018 Closed fracture of lateral portion of right tibi al plateau 03/20/2017 Right knee pain 03/19/2017 Coronary artery disease invo lving coronary bypass graft of [place] heart without angina pectoris Achilles rupture, left Encounters Date Type Department Care Team Description 12/17/2024 2:30 PM EDT Office Visit [facility] Department of Neurology [address], [address] [place] [address] Jesse Humphrey MD Parkinson's disease without dyskinesia or fluctuating manifestations (Primary Dx) 10/16/2024 Refill [facility] Department of Neurology [address], [address] [place] [address] Jesse Humphrey MD Medication Refill from Last 3 Months Immunizations Immunization Administration Dates Next Due INFLUENZA, SPLIT VIRUS, TRIV ALENT W/ PRESERVATIVE IM 12/13/2015,11/24/2011,12/05/2010,01/27,12/07/2008,01/06/2008,03/04/2007 ,01/15/2006,03/14/2005 Influenza High-Dose Quadriva lent Preservative Free IM 12/28/2019 Influenza High-Dose Trivalen t Preservative Free IM 12/28/2019,01/05/2019,01/02/2018,12/25 Influenza, Unspecified Formulation 03/25/2017, Pneumococcal conjugate PCV13 08/25/2014 Pneumococcal polysaccharide PPSV23 07/24/2011, Td (adult),2 Lf Tetanus Toxo id, PF, Adsorbed 07/25/2004 Td, unspecified formulation 11/26/2014 Zoster live 12/20/2012 Zoster recombinant 10/22/2017 Family History Medical History Relation Comments Infl. arthritis Unspecified Relation Status Comments Father Mother Unspecified Social History Tobacco Use Types Packs/Day Years Used Date Smoking Tobacco: Never Smokeless Tobacco: Never Tobacco Cessation:Counseling Given: Not Answered Alcohol Use Standard Drinks/Week Comments No 0 [...] Sign Reading Time Taken Comments Blood Pressure 153/76 12/17/2024 2:25 PM EDT Pulse 79 12/17/2024 2:25 PM EDT Temperature 36.1 C (96.9 F) 12/17/2024 2:25 PM EDT Respiratory Rate 16 01/13/2020 5:00 PM EDT Oxygen Saturation 95% 12/17/2024 2:25 PM EDT Inhaled Oxygen Concentration - - Weight 115.2 kg (254 lb) 12/17/2024 2:25 PM EDT Height 169.5 cm (5' 6.73 ) 12/17/2024 2:25 PM ED T Body Mass Index 40.1 12/17/2024 2:25 PM EDT Plan of Treatment Health Maintenance Due Date Last Done Comments DEPRESSION SCREENING 1958 HEPATITIS C SCREENING 1964 ZOSTER VACCINES (3 of 3) 12/17/2017 10/22/2017, 11/24 CREATININE LEVEL 01/08/2021 01/09/2020 POTASSIUM LEVEL 01/08/2021 01/09/2020 RSV VACCINE (1 - 1-dose 75+ series) 2021 INFLUENZA VACCINE (#1) 2024 0, 12/28/2019, 01/05/2019, Additional history exists COVID-19 VACCINE ( - 2024- season) 2024 06/02/2020 Adult Td,Tdap Booster 11/26/2024 11/26/2014, 005 BLOOD PRESSURE 06/16/2025 12/17/2024 PNEUMOCOCCAL VACCINES (50+ years) Completed 08/25/2014, 07/24/2011, 02/25/2004 SMOKING STATUS SCREENING (Once After 26 Yrs) Completed 12/17/2024 HEPATITIS A VACCINES Aged Out No long er eligible based on patient's age to complete this topic HIB VACCINES Aged Out No longer eligi ble based on patient's age to complete this topic MENINGOCOCCAL VACCINES (ACWY) Aged Out No longer eligible based on patient's age to complete this topic MENINGOCOCCAL VACCINES (B) Aged Out N o longer eligible based on patient's age to complete this topic Medical Devices Implanted Type Area Pickling Tank Operator Device Identifier Shelf Expiration Date Model / Serial / Lot Lens Lens Bilateral : Eye Nodata NODATA Penis Prosthetic Joint Prosthetic Joint Left: Knee Procedures Procedure Name Priority Date/Time Associated Diagnosis Comments BASIC METABOLIC PANEL Routine 01/09/2020 8:36 AM EDT Rupture of left Achilles tendon, initial encounter from Last 3 Months or Most Recently Relevant to Health Maintenance Results * (ABNORMAL) Basic metabolic panel (01/09/2020 8:36 AM EDT) SODIUM 142 133 - 146 mmol/L CHLORIDE 104 96 - 108 mmol/L POTASSIUM 3.8 3.3 - 5.1 mmol/L CO2 27 21 - 35 mmol/L BUN 21(H) 6 - 19 mg/dL CREATININE 0.80 0.5 - 1.5 mg/dL GLUCOSE 153(H) 70 - 99 mg/dL CALCIUM 10.4(H) 8.4 - 10.3 mg/dL EGFR 89 >59 mL/min/1.7 3m2 Comment:Estimated glomerular filtration rate calculated using the CKD-EPI equation. ANION GAP 15 10 - 20 mmol/L Blood 01/09/2020 8:36 AM EDT 01/09/2020 8:38 AM EDT Aguila Sloan MD LAB BLOOD ORDERABLES Final Re sult [address] [place] [address] from Last 3 Months or Most Recently Relevant to Health Maintenance [place] [facility] [place] [facility] & B [facility] MEDIC[facility] PART A & [place] Advance Directives For more information, please contact: [phone] (9AM - 5PM [facility], Saturday-Saturday) Documents on File Type Date Recorded Patient Tax Lawyer Expl [facility] Healthcare Proxy 01/14/2020 8:58 AM Care Teams Rice Drier Relationship Specialty Start Date End Date El Venegas MD [address] [place] [id number] PCP - General Internal Medicine 10/26/24 Additional Source Comments The information contained in this document represents components of the legal health record. It is not the complete legal health record.[facility]
[2024-12-29 08:28] VITALS: BMI 38.7
--- NOTE | 2024-12-29 08:28 | A.OFFVIS_ITS ---
Vital Signs 12/29/24 08:28 Height 5 ft 6 in Weight 240 lb BMI 38.7 Intake Visit Reasons: Diabetic, Toe nail cutting Intake Note: Juve is a 79 year old male who presents today as a New Patient for a Bilateral Diabetic Foot Exam & Nail Clipping. Pt states glucose is currently at 133 and his last reported A1C was 7.6%.He notes bilateral tingling in the plantar aspect of his feet. Pt denies any history of wounds to his feet however he does have history of left Achilles tendon repair surgery. Pt denies any history of injury to his back but he does get occasional back pain and he is not taking gabapentin. Allergies bupropion (From WELLBUTRIN) Allergy (Severe, Verified 12/29/24 08:29) Hallucinations Medication List - Last Reconciled 12/29/24 by Pa Sunshine DPM allopurinol 300 mg PO DAILY amlodipine 10 mg PO DAILY ammonium lactate 12% (AmLactin) 1 appl topical DAILY aspirin 81 mg PO DAILY atorvastatin 40 mg PO BEDTIME calcium carbonate-vitamin D3 600 mg-10 mcg (400 unit) 2 tabs PO DAILY carbidopa-levodopa 25-100 mg tabs PO clopidogrel 75 mg PO DAILY donepezil (Aricept) 5 mg PO DAILY dulaglutide (Trulicity) 3 mg subcut QWEEK famotidine 40 mg PO QPM [flasp flex-pen 5 units miscellaneous] [Flonase NOSTRIL-L] fluticasone propionate 50 mcg/actuation sprays intranasal furosemide 20 mg PO BID furosemide 40 mg PO BID insulin aspart U-100 units subcut insulin degludec 30 units subcut BID isosorbide mononitrate ER 60 mg PO QAM lancets As directed levocetirizine 5 mg PO DAILY lisinopril 20 mg PO DAILY metoprolol tartrate 25 mg PO BID multivit with auj-LI-goizmoeq 0.4-600 mg-mcg tabs PO nitrofurantoin monohyd/m-cryst 100 mg (Macrobid) 100 mg PO BID 7 days nitroglycerin 0 mg sublingual pen needle, diabetic As directed sertraline 50 mg PO DAILY sertraline 100 mg PO DAILY tamsulosin 0.4 mg PO BEDTIME 90 days trazodone 100 mg (2 x 50 mg) PO BEDTIME 30 days [tresiba miscellaneous] HPI HPI Diabetic, Toe nail cutting: Details: 79-year-old male past medical history of diabetes mellitus type 2, HTN, HLD, Parkinson's disease, BPH, gout, on plavix, seen today for initial diabetic foot evaluation and painful nails. He endorses bilateral plantar feet tingling and occasional burning. Denies histories of ulcers. He has a history of left Achilles tendon rupture which was surgically fixed and treated with 12 weeks of conservative treatment. He has also been placed in a AFO due to concerns of progression of his muscle weakness with his Achilles repair as per his orthopedic provider. Patient and his deny that he has any difficulty or issues with his AFO brace or with the walking. Does not use any assistive devices. [facility] Medical History (Updated 12/29/24 @ 09:07 by Pa Sunshine DPM) Restless leg syndrome Dyspnea Insomnia Bipolar 1 disorder Diabetes mellitus, type II Kidney cysts Chronic rhinitis Renal stones Benign prostatic hyperplasia with lower urinary tract symptoms Parkinson disease JOSELITO on CPAP Surgical History History of surgery Family History Father No problems noted. Mother No problems noted. Social History Patient Tobacco Use Status: Former Tobacco user Tobacco use type: Cigarette Years Smoked: 30 years Review of Systems Const All systems reviewed & are unremarkable except as noted in HPI and below Physical Exam Vital Signs: BMI result Body Mass Index 38.7 Extrem Other: *Bilateral Lower Extremity Focused Diabetic Foot Exam Vascular: DP/PT faintly palpable bilaterally, CFT<3s to digits, TG warm to cool, no pedal edema, pedal hair absent Derm: Skin: No open lesions, ulcerations, or calluses. Interdigital spaces: Clear, no maceration or fungal infection. Nails: No onychomycosis, paronychia, or ingrown nails. Neuro: Jeanerette-jenni monofilament (10g) test 10/10 intact to right foot, 8/10 intact to left foot. Msk: Deformities: Semi rigid flexion deformity of bilateral hallux, semi-rigid mallet toe flexion deformity digits 2 and 3 right foot. No bunions, Charcot changes, or other structural abnormalities. Muscle strength: 5/5 in all muscle groups. Gait: Slow shuffled even gait. no antalgic or steppage gait observed. Footwear Assessment: Shoes inspected; appropriate fit, no excessive wear, or foreign objects noted. AFO brace left lower extremity. Office Procedures AMB Debridement/Avulsion Podia Details: Procedure: Nail debridement Location: Bilateral feet x 10nails Anesthesia: N/A Description: The affected toenails were cleansed with an antiseptic solution. Using sterile nail nippers and a rotary francisca, dystrophic and mycotic nail material was carefully debrided and reduced in thickness. Care was taken to avoid trauma to the surrounding skin and nail bed. All debris was removed as tolerated. The area was inspected for signs of infection or ulceration. Patient tolerated the procedure well without complications. Tolerance: Patient tolerated procedure well, no immediate complications. Class A and B findings as per physical exam findings above. The patient has a diagnosis of diabetes mellitus and presents with elongated, thickened toenails. Due to underlying diabetic neuropathy and mild vascular disease findings, the patient is at increased risk for complications such as ulceration, infection, and difficulty with self-care. Debridement of elongated toenails is medically necessary to prevent development of pressure-related lesions, reduce risk of secondary infection, and maintain foot health in high- risk comorbidities. Procedure: Callus debridement Location: Right foot two calluses digits 2 and 3 Anesthesia: N/A Description: The affected area was cleansed with an antiseptic solution. Using a sterile #15 blade, the hyperkeratotic tissue was radially debrided from the foot. All callused tissue was removed down to normal skin without causing bleeding or discomfort. The area was inspected for underlying ulceration or infection. Patient tolerated the procedure well. No complications noted. Tolerance: Patient tolerated procedure well, no immediate complications. 76414-Vcjvfcavcwr of Nail 6+ 33460-Xffxqebyeeu of Callus (2-4) Procedure code (CPT) selection complete Assessment & Plan Assessment & Plan (1) Diabetes mellitus, type II: Code(s): E11.9 - Type 2 diabetes mellitus without complications Category: Medical Plan: Risk Stratification: No current ulceration, infection, or pre-ulcerative lesion. Mild loss of protective sensation, mild clinical findings of peripheral arterial disease, which are expected given his medical history. No plans for further testing/referrals for non-invasive vascular studies. Patient is at low risk for diabetic foot complications at this time. Recommendations: Continue routine foot care and daily self-inspection. Recommend moisturizing daily. Recommend supportive proper fitting shoe-wear. The patient may require diabetic shoes in the future. Reinforced diabetic foot education and risks from peripheral neuropathy. (2) Parkinson disease: Code(s): G20 - Parkinson's disease Category: Medical Qualifiers: Dyskinesia presence: unspecified whether dyskinesia Fluctuating manifestations: unspecified whether manifestations fluctuate Qualified Code(s): G20.A1 - Parkinson's disease without dyskinesia, without mention of fluctuations Plan: * Continue AFO brace left lower extremity. (3) Xerosis cutis: Code(s): L85.3 - Xerosis cutis Category: Medical Plan: * Rx Amlactin ointment (4) Tinea unguium: Code(s): B35.1 - Tinea unguium Category: Medical Plan: * Debrided elongated toenails times 10. * Follow up in 9 weeks (5) Hammertoe of right foot: Code(s): M20.41 - Other hammer toe(s) (acquired), right foot Category: Medical Plan: * patient has calluses distal 2nd/3rd right second digit due to hammertoe deformity * Debrided hyperkeratotic lesions x2. Orders: Orders AMB Debridement/Avulsion Podiatry Today B35.3 - Tinea pedis, G20.A1 - Parkinson's disease without dyskinesia, without mention of fluctuations, L85.3 - Xerosis cutis Medications: New ammonium lactate 12% (AmLactin) Apply to bottom of feet daily. *Avoid over-application which can cause slip/falls. 1 appl topical DAILY 225 grams 3RF xerosis L85.3 - Xerosis cutis Coding Level of Care Code New Pt Level 4 (54581) Diagnoses Diabetes mellitus, type II E11.9 Parkinson's disease, unspecified whether dyskinesia present, unspecified whether manifestations fluctuate G20.A1 Dyskinesia presence: unspecified whether dyskinesia Fluctuating manifestations: unspecified whether manifestations fluctuate Xerosis cutis L85.3 Tinea unguium B35.1 Hammertoe of right foot M20.41 CPT Codes Skin Debridement - CPT: 01993-Adstdqevhlf of Nail 6+ ([id number]) Skin Debridement - CPT: 93568-Cjwyydsdxfp of Callus (2-4) ([id number]) Time Spent (min) 35
== END 2024-12-29 08:52 | disposition home or self-care (01) ==
LOC: HO.HPODS 07:52
PROVIDERS: PCP Internal Medicine; Visit Provider Student in an Organized Health Care Education/Training Program
DX: E11.9 Type 2 diabetes mellitus without complications (principal); G20.A1 Parkinson's disease without dyskinesia, without mention of fluctuations; L85.3 Xerosis cutis; B35.1 Tinea unguium; M20.41 Other hammer toe(s) (acquired), right foot
CPT/HCPCS: 11056; 11721; 99204

== ENCOUNTER → 2024-12-29 07:52 | Outpatient (BNVA) | payer MEDICARE, MEDICAID, SELFPAY | PROVIDERS: PCP Internal Medicine; Visit Provider Student in an Organized Health Care Education/Training Program | DX: L85.3 Xerosis cutis (principal); B35.3 Tinea pedis; G20.A1 Parkinson's disease without dyskinesia, without mention of fluctuations; E11.9 Type 2 diabetes mellitus without complications | CPT/HCPCS: 11056; 11721; 99202 ==

== ENCOUNTER 2025-01-19 09:42 | Outpatient (AMB) | payer MEDICARE, MEDICAID, SELFPAY ==
--- OUTSIDE RECORDS SUMMARY | 2024-03-10 07:45 | XMS_ITS ---
Author Organization [facility] Address [address] [place] [address] Care Team Providers Care School Library Media Program Director Name Role Phone El Venegas Primary Care Provider Raúl Rowland MD,MPH, Eric Myriam REASON FOR VISIT throat irritation Encounters Encounter Location Date Provider Diagnosis [address] [address] 03/10/2024 Eric Rowland Plan Of Treatment No Information Progress Notes * Juve CANDELARIA PDOB:1944 (79 yo M)Acc No.[id number]:03/10/2024 Progress Notes Patient: Juve LICEA Provider: Tiffanie Rowland MD, MPH :1945 A ge:78 Y S ex:Male Date:03/10/2024 Address:[address] [place], [place] [id number] Pcp:El Venegas Subjective: * Chief Complaints: * 1 . Throat irritation. * Medical History: Objective: * Vitals: * Physical Examination: Assessment: Plan: * Treatment: * Images: * Electronic signature of Robbie Rowland MD,MPH, MD, MPH on 01/19/2025 at 11:14 AM EDT Sign off status: Pending * Provider: Tiffanie Rowland MD, MPH Date: 05/11/2023 Generated for Printi ng/Fajagg/eTransmitting on: 11:14 AM EDT
[2025-01-19 09:46] VITALS: BP 140/64; PULSE 67; O2SAT 98
--- NOTE | 2025-01-19 09:46 | MHC.OFFVIS ---
Vital Signs 01/19/25 09:46 Height 5 ft 6 in BMI Reason not done Patient refused/unable BP 140/64 H Blood Pressure Location Lt brachial Position Sitting Pulse 67 Pulse Source Pulse Oximeter Pulse Oximetry (%) 98 Oxygen Delivery Method Room Air Intake Visit Reasons: COPD Ultimate Hoops Referee Required: No Accompanied by: Self / Same As Patient Allergies bupropion (From WELLBUTRIN) Allergy (Severe, Verified 01/19/25 09:48) Hallucinations HPI Comments Details: the patient is a 79-year-old gentleman known obstructive sleep apnea on CPAP in addition to Parkinson's disease. Overall the patient has been doing well from a respiratory status. He does have an intermittent cough but minimal. He also complains of nasal congestion usually does clears his nose without any difficulty. I encouraged him to make sure that his nose is cleared with saline prior to putting him CPAP. He has been using the CPAP therapy in the therapy has been affecting beneficial. He does uses CPAP for more than 4 hours a night. He is having difficulties, with his current mask, F20. he did go to his [employer] and he was set up with the Iris gel mask. hopefully this mask works better for him. Otherwise patient is without any other complaints. 07/20/2021 the patient is here for a pulmonary follow-up visit. Overall he is doing well. He does continue to use his BiPAP therapy. He did get a new replacement machine. appears to be working very well. His current settings are 17/12. I did download the machine and his AHI is close to 0.1. However his lung volumes seems to be high between 600-900 mL. Therefore although he is doing well will be reasonable to try to decrease some of the driving pressure to try to minimize the over distension of the lungs. Therefore I decreased to 16/12. He will continue that and monitor his AHI. Will be able to making further adjustments online with his new more sophisticated BiPAP. He continues to have a hard time sleeping. He tried multiple agents already. He does not respond well to medications. We did talk about behavioral sleep therapy. he will try adding some of those techniques to his sleep. We also did talk about herbal sleep therapies. he will also consider those. Otherwise patient is without any other complaints. 07/30/2022 the patient is here for a pulmonary follow-up visit. The patient overall is doing about the same. His Parkinson's disease about the same. He continues use the BiPAP every night at the current settings. His AHI still below 1. Although he does get a lot of air leakage even though he has a fullface mask. He has found that the medium size fullface mask works better for him. Although sometimes when he opens up his mouth it does come out and causes the air leakage. However, he does feel that he does better with a medium-size mask. I did recommend he can try chinstrap that he can use along with the fullface mask to see if this provides better seal. Will submit a prescription to his [employer] company come out life support. In addition to this he still struggling with sleep. His using Kenzie and would at nighttime. He will try adding melatonin to the regimen. In addition to that which check his iron stores and ferritin to make sure that he is not are depleted potentially resulting in rests like at nighttime. 08/02/2023 the patient is here for pulmonary follow-up visit. The patient since we last spoke did have a cardiac event requiring quadruple bypass surgery at [facility]. The patient afterwards developed a pneumonia. Had a CT scan of the chest done March 2023 which I personally reviewed demonstrating airspace disease in addition to the chronic pleural changes secondary to pleural thickening and pleural effusion after his surgery. He did recover he then went to rehab and now has doing better. He also has some delirium on the hospital. While in the hospital he could not tolerate the BiPAP due to his altered mental status. But now he is back to using it. He can not find a good fitting mask. He is tried multiple different types. Currently he is using the F20 mask. He does get supplies from by supplies. I do believe that enough 20 AirTouch foam mask may be a good option for him to bed get a better seal around the face. We did give him a script for him to take and also will send a script to his [employer] company. The patient also has been having issues with shortness a breath. He is noticed increased lower extremity edema. Does take Lasix twice a day. He also had a pulse ox of 94% which is a little low with normal for him. His respiratory exam is okay just diminished on the left side where he has this small effusion. He had a chest x-ray May still demonstrating persistent effusion although very small. I did recommend he take additional Lasix for the weekend least 1 more tablet in the morning and then if any persistent issues she should call his compliance examiner. 04/22/2024 the patient is here for a pulmonary follow-up visit. Overall he is doing okay. He has been using his BiPAP every night the therapy has been affecting beneficial. We did download the data and he has been using more than 4 hours. He does have a fullface mask and sometimes it does leak air. His does complain because it does keep her up. She is also concerned that his sleep is fragmented. He does wake up at times and can not go back to sleep so he goes to a computer in place games. Will go ahead and increase his trazodone to see if we can get him to more therapeutic level to make sure that he sleeps better and not has fragmented sleep. Also he did follow-up with ENT because of a chronic cough. Apparently he did have a CT scan of the sinuses at [facility]. I do not have those results but he was told that everything was okay. Will have him get a chest x-ray at this time. Cough seems to be okay most likely reflux related. He knows about the reflux diet. Also should be sleeping elevated. 01/19/2025 the patient is here for pulmonary follow-up visit. The patient overall has been doing okay. He is still struggling with his mask. Keeps coming off and making significant leakage wake in his up. She gets very upset about it. She did bring his mask. He does have a medium F20 AirTouch foam mask. He likes to foam it seals well. Seems like it is getting the wrong size as he does need a large mask. I did have 1 available and I did provide him with a large F20 mask to use for now. Will also requested from his [employer] company. Currently on BiPAP 10/03. Seems to be tolerating it well in his AHI is 1.7. Overall stable. He will continue the current therapy. He has been having a cough. In part likely secondary to reflux related in postnasal drip. He did see ENT and he found his vocal cords were okay. Initially was not sure if it was related to previous intubation. No findings there. The patient overall has been doing well though he will be seeing his specialists for the Parkinson's tomorrow and have additional testing. Today he will have a chest x-ray to follow-up with his cough. Otherwise the patient is doing well will follow-up in a year's time. [facility] Medical History (Updated 12/29/24 @ 09:07 by Pa Sunshine DPM) Restless leg syndrome Dyspnea Insomnia Bipolar 1 disorder Diabetes mellitus, type II Kidney cysts Chronic rhinitis Renal stones Benign prostatic hyperplasia with lower urinary tract symptoms Parkinson disease JOSELITO on CPAP Surgical History History of surgery Family History Father No problems noted. Mother No problems noted. Social History Patient Tobacco Use Status: Former Tobacco user Tobacco use type: Cigarette Years Smoked: 30 years Review of Systems Const Reports difficulty sleeping and Denies night sweats ENT Denies change in voice, Denies lip swelling, Denies mouth pain, Reports nasal congestion, Reports nasal discharge and Denies tongue swelling Card Denies chest pain and Reports dyspnea on exertion Resp Reports cough and Reports dyspnea on exertion GI Denies abdominal pain Musc Reports abnormal gait Neuro Reports Neuro-related abnormal movements, Reports abnormal gait and Reports tremor(s) Psych Denies no additional complaints Jose Luis/Lymph Denies easy bleeding and Denies lymphadenopathy Aller/Immun Denies lip swelling and Denies tongue swelling Physical Exam Vital Signs: Last Vital Signs Pulse 67 01/19/25 09:46 BP 140/64 H 01/19/25 09:46 Pulse Ox 98 01/19/25 09:46 Oxygen Delivery Method Room Air 01/19/25 09:46 Const General: alert HEENT General nose exam: Abnormal external nose present and Nasal discharge present Eyes Pupils: Equal, round and reactive pupils present Neck Neck: Yes normal visual inspection, Yes full ROM and Yes no lymphadenopathy Chest Chest palpation & inspection: normal inspection of the chest Resp Effort & Inspection: normal respiratory effort Auscultation: diminished lung sounds Cardio Rate: regular rate Rhythm: regular rhythm Heart sounds: S1 normal heart sound present and S2 normal heart sound present GI Palpation (GI): Soft to palpation and nontender Auscultation: normal bowel sounds General: Yes no CVA tenderness Back/Spine/Pelvis Back: no CVA tenderness Skin General skin exam: rashes and/or lesions noted Neuro Cranial nerves: Yes Equal, round and reactive pupils present Assessment & Plan Assessment & Plan (1) JOSELITO on CPAP: Code(s): G47.33 - Obstructive sleep apnea (adult) (pediatric); Z99.89 - Dependence on other enabling machines and devices Category: Medical (2) Insomnia: Code(s): G47.00 - Insomnia, unspecified Category: Medical Qualifiers: Insomnia type: primary Qualified Code(s): F51.01 - Primary insomnia (3) Restless leg syndrome: Code(s): G25.81 - Restless legs syndrome Category: Medical (4) Dyspnea: Code(s): R06.00 - Dyspnea, unspecified Category: Medical Qualifiers: Dyspnea type: dyspnea on exertion Qualified Code(s): R06.09 - Other forms of dyspnea (5) Parkinson disease: Code(s): G20 - Parkinson's disease Category: Medical Plan continue BIPAP 09/03, medium facemask, requesting airtouch foam F20 Large Behavioral sleep therapies Trazodone 100mg QHS CXR Follow up 8-12 months Coding Level of Care Code Est Pt Level 4 (32821) Complex EM visit Add On G2211 Diagnoses JOSELITO on CPAP G47.33; Z99.89 Primary insomnia F51.01 Insomnia type: primary Restless leg syndrome G25.81 Dyspnea on exertion R06.09 Dyspnea type: dyspnea on exertion Parkinson disease G20 Time Spent (min) 17
--- OUTSIDE RECORDS SUMMARY | 2025-01-19 11:14 | XMS_ITS | Encounter Summary ---
Author Organization [facility] Address [address] [place] [address] Phone Care Team Providers Care Manager Sales Name Role Phone Felicity Howell MD Primary Care Provider El Venegas MD Primary Care Provide r Encounter Details Date Type Department Care Team (Late st Contact Info) Description 12/10/2023 Telephone [facility] [place]rology [address] [facility], 8th Floor, [address] [place] [address] Jesse Humphrey MD [address] [place], [place] [id number] [place] [address] [email or web address] Social History Tobacco Use Types Packs/Day Years [...] calling looking to have referral made for [facility] for Fall Prevention Program following string of recent falls. Phone ([facility]) [phone] Fax ([facility]) [phone] documented in this encounter Plan of Treatment Not on file documented as of this encounter Visit Diagnoses Diagnosis Parkinson's disease without dyskinesia or fluctuating manifestations- Primary documented in this encounter Care Teams Manager Sales Relationship Specialty Start Date End Date Felicity Howell MD PCP - General Internal Medicine 10/07/15 10/25/24 El Venegas MD [address] [address] PCP - General Internal Medicine 10/26/24 documented as of this encounter Additional Source Comments The information contained in this document represents components of the legal health record. It is not the complete legal health record.[facility]
--- OUTSIDE RECORDS SUMMARY | 2025-01-19 11:14 | XMS_ITS | Patient Health Record ---
Author Organization [facility] Address [address] [place] [address] Care Team Providers Care Precision Inspector Name Role Phone El Venegas Primary Care Provider U arianna Rowland MD,MPH, Ericko Miguel [phone] Allergies Allergen (clinical drug ingredient) Drug/Non Drug [...] Risk Notes Problem Obstructive sleep apnea syndrome (31498191) JOSELITO on CPAP (G47.33) Active confirmed Problem Laryngopharyngeal reflux (838033143) Laryngopharyngeal reflux (LPR) (K21.9) Active confirmed Problem Parkinson's disease (disorder) (00034480) Parkinson disease, symptomatic (G20.A1) Active confirmed Vital Signs Blood pressure diastolic 80 mm Hg 04/08/2024 Height 67 in 04/08/2024 Blood pressure systolic 120 mm Hg 04/08/2024 Weight 235 lbs 04/08/2024 BMI 36.8 kg/m2 04/08/2024 Encounters Encounter Location Date Provider Diagnosis [facility] [address] [facility] [address] [place] [address] 04/08/2024 Eric Rowland Laryngopharyngeal reflux (LPR) K21.9 [...] Date Medicare [employer], [employer]it [address] [facility] [place] [id number] Jose Francisco Candelariaur Self - patient is the insured [facility] [address] [place] [id number] 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
--- OUTSIDE RECORDS SUMMARY | 2025-01-19 11:14 | XMS_ITS | Clinical Summary ---
Author Organization [address] Address [address] [place] [phone] Phone Care Team Providers Care Motorboat Mechanic Helper Name Role Phone Alvarez Tejada MD Primary Care Provider [phone] Allergies No known active allergies Medications fluticasone [...] vaccine 10/23/2024 Covid-19 vaccine series (1 - 2024- season) 2024 Colon cancer screening, Colonoscopy Discontinued Meningococcal B Vaccine Aged Out No l onger eligible based on patient's age to complete this topic Meningococcal Vaccine Aged Out No ashlee radha eligible based on patient's age to complete this topic Insurance MEDICARE [id number] MEDICAID MEDICARE [id number] MEDICAID MEDICARE [id number] MEDICAID MEDICARE [id number] MEDICAID Care Teams Motorboat Mechanic Helper Relationship Specialty Start Date End Date Alvarez Tejada MD PCP - General Internal Medicine 08/03/14
--- OUTSIDE RECORDS SUMMARY | 2025-01-19 11:14 | XMS_ITS | Encounter Summary ---
Author Organization [facility] Address [address] [place] [address] Phone Care Team Providers Care Suggestion Clerk Name Role Phone Felicity Howell MD Primary Care Provider [phone] El Venegas MD Primary Care Provide r Encounter Details Date Type Department Care Team (Late st Contact Info) Description 01/13/2020 Procedure Pass OR Admitting Dept - Virtual Department [address] [place] [phone] Social History Tobacco Use Types Packs/Day [...] on filedocumented in this encounter Care Teams Suggestion Clerk Relationship Specialty Start Date End Date Felicity Howell MD PCP - General Internal Medicine 10/07/15 10/25/24 El Venegas MD [address] [place] [address] PCP - General Internal Medicine 10/26/24 documented as of this encounter Additional Source Comments The information contained in this document represents components of the legal health record. It is not the complete legal health record.[facility]
--- OUTSIDE RECORDS SUMMARY | 2025-01-19 11:14 | XMS_ITS | Clinical Summary ---
Author Organization [facility] Address [address] [place] [address] Phone Care Team Providers Care Professional Advisor Name Role Phone El Venegas MD Primary [...] every 5 minutes as needed. 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, left Encounters Date Type Department Care Team Description 12/17/2024 2:30 PM EDT Office [place] [facility] [place] [address] [facility], 8th Floor, [address] [place] [phone] Jesse Humphrey MD Parkinson's disease without dyskinesia or fluctuating manifestations (Primary Dx) from Last 3 Months Immunizations Immunization Administration [...] this topic Medical Devices Implanted Type Area Fish Agent Device Identifier Shelf Expiration Date Model / [...] EDT) SODIUM 142 133 - 146 mmol/L [facility] CHLORIDE 104 96 - 108 mmol/L [facility] POTASSIUM 3.8 3.3 - 5.1 mmol/L [facility] CO2 27 21 - 35 mmol/L [facility] BUN 21(H) 6 - 19 mg/dL [facility] CREATININE 0.80 0.5 - 1.5 mg/dL [facility] GLUCOSE 153(H) 70 - 99 mg/dL [facility] CALCIUM 10.4(H) 8.4 - 10.3 mg/dL [facility] EGFR 89 >59 mL/min/1.7 3m2 [facility] Comment:Estimated glomerular filtration rate calculated using the CKD-EPI equation. ANION GAP 15 10 - 20 mmol/L [facility] Blood 01/09/2020 8:3 6 AM EDT 01/09/2020 8:38 AM EDT us Aguila Sloan MD LAB BLOOD ORDERABLES Final Re sult [facility] [address] [place] [address] from Last 3 Months or Most Recently Relevant to Health Maintenance Insurance [facility] MEDIC[facility] PART A & B [facility] MEDICARE PART A & B [place] & [place] & [facility] & [place] B [facility] MEDIC[facility] PART A & B [facility] Advance Directives For more information, please contact: [phone] (9AM - 5PM [facility], Saturday-Saturday) Documents on File Type Date Recorded 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 It is not the complete legal health record.[facility]
--- OUTSIDE RECORDS SUMMARY | 2025-01-19 11:14 | XMS_ITS | Clinical Summary ---
Author Organization [facility] Address [address] [place] [address] Care Team Providers Care National Accounts Recruiter Name Role Phone Unavailable Primary Care Provider [...]
--- OUTSIDE RECORDS SUMMARY | 2025-01-19 11:15 | XMS_ITS | Encounter Summary ---
Author Organization [facility] Address [address] [place] [address] [place] [address] Phone Care Team Providers Care Director Women Name Role Phone Felicity Howell MD Primary [...] Expiration Date Visits Re quested Visits Authorized [id number] Closed 11/01/2015 10/31/2016 1 1 Encounter Details Date Type Department Care Team (Latest Contact Info) Description 11/01/2015 Transcribe Orders [facility] Department of Neurology [address] [facility], 8th Floor, [address] [place] [address] Adolfo Mckee MD [address] [place] [address] Parkinson disease (Primary Dx); Essential and other [...] Associated Diagnoses Order Schedule Ambulatory referral to [facility] [place]rology Outpatient Referral Routine Parkinson disease Essential and other specified forms of tremor Ordered: 11/01/2015 documented as of this encounter Visit Diagnoses Diagnosis Parkinson disease- Primary Paralysis agitans Essential and other specified forms of tremor documented in this encounter Care Teams Director Women Relationship Specialty Start Date End Date Felicity Howell MD PCP - General Internal Medicine 10/07/15 10/25/24 El Venegas MD [address] [place] [phone] PCP - General Internal Medicine 10/26/24 documented as of this encounter Additional Source Comments The information contained in this document represents components of the legal health record. It is not the complete legal health record.[facility]
== END 2025-01-19 10:14 | disposition home or self-care (01) ==
LOC: HO.HPS 09:43
PROVIDERS: PCP Internal Medicine; Visit Provider Hospitalist
DX: G47.33 Obstructive sleep apnea (adult) (pediatric) (principal); Z99.89 Dependence on other enabling machines and devices; F51.01 Primary insomnia; G25.81 Restless legs syndrome; R06.09 Other forms of dyspnea; G20.C Parkinsonism, unspecified
CPT/HCPCS: 99214; G2211

== ENCOUNTER 2025-01-19 09:42 | Outpatient (REF) | payer MEDICARE, MEDICAID, SELFPAY ==
--- NOTE | ~2025-01-19 | XR_ITS ---
EXAMINATION: XR CHEST CLINICAL INFORMATION: R06.09 - Other forms of dyspnea COMPARISON: None available. TECHNIQUE: 2 views of the chest were obtained. FINDINGS: There are mediastinal wires. Cardiac size is upper limits of normal. Pacemaker projects over the mid left chest with 2 leads, one terminates in the right atrium and one in right ventricle. Lungs are clear with distinct pulmonary vascularity. Syndesmophytes are present through the thoracic spine. Disc spaces are mildly narrowed. There is mild wedging of a lower thoracic vertebral body, likely T12, probably chronic. XR/XR chest 2V IMPRESSION: No acute disease. Suspected ankylosing spondylitis. Age-indeterminate mild compression fracture of T12. Electronically signed by: James Florez MD 01/19/2025 10:36 AM EDT
== END 2025-01-19 09:43 | disposition home or self-care (01) ==
LOC: HO.XRAY 09:42
PROVIDERS: PCP Internal Medicine; Visit Provider Hospitalist
DX: G47.33 Obstructive sleep apnea (adult) (pediatric) (principal); F51.01 Primary insomnia; G25.81 Restless legs syndrome; G20.A1 Parkinson's disease without dyskinesia, without mention of fluctuations; R06.09 Other forms of dyspnea; Z79.899 Other long term (current) drug therapy; Z99.89 Dependence on other enabling machines and devices; Z87.891 Personal history of nicotine dependence
CPT/HCPCS: 71046; 99212

== ENCOUNTER → 2025-01-19 10:21 | Outpatient (BNV) | payer MEDICARE, MEDICAID, SELFPAY | PROVIDERS: PCP Internal Medicine; Visit Provider Radiology Diagnostic Radiology | DX: R06.09 Other forms of dyspnea (principal) | CPT/HCPCS: 71046 ==